=== PATIENT | female | born 1975 | race Caucasian/White ===

== ENCOUNTER 2020-09-25 08:54 | Inpatient (IN) | payer SELFPAY ==
[~2020-09-25] VITALS: Ht 162.6 cm; Wt 73.2 kg
--- NOTE | 2020-09-25 10:10 | PHYS DOC ---
Past Medical History Past Medical History: Other Additional Past Medical Histor: "seizure spells when in pain" Past Surgical History: No Surgical History Smoking Status: Never Smoker Alcohol Use: None General Adult EDM: Chief Complaint: ABDOMINAL PAIN HPI: HPI: 44-year-old female who denies any significant past medical history presents to the ED with complaints of right upper and right lower abdominal pain that has been persistent since patient visited [facility] emergency department yesterday. Patient reports pharmacy was closed and she was unable to refill her medications. When asked if she has primary care physician, takes prescribed medications she states, " I only see doctors when I think I am going to ." Is unable to tolerate anything by mouth-reports multiple episodes of nausea and vomiting. Nontobacco smoker. No history of alcohol or drug use. EMR was reviewed from yesterday's encounter at [facility]. Ultrasound results showed dilated gallbladder but no other secondary evidence of acute cholecystitis, recommended HIDA scan. CT abdomen pelvis with IV contrast showed dilated gallbladder, diffuse hepatic steatosis, normal appendix, no renal or ureteral colliculi, no perinephric inflammation or hydronephrosis and normal abdominal aorta. She had a normal chest x-ray. She had a white count of 15.4, creatinine of 1.1, drug screen negative, no ketonuria, small blood on UA. Patient hypertensive in the 1 50-1 70 systolic range, 80-90 diastolic range. Bradycardic in the 50s. Afebrile at 98.2. Review of Systems: Review of Systems: Constitutional: Denies fever or chills. [] Eyes: Denies change in visual acuity. [] HENT: Denies nasal congestion or sore throat. [] Respiratory: Denies cough or shortness of breath. [] Cardiovascular: Denies chest pain or edema. [] GI: Denies melena, hematochezia, hematemesis, or diarrhea. [] : Denies dysuria or hematuria Musculoskeletal: Denies back pain or joint pain. [] Integument: Denies rash or diaphoresis Neurologic: Denies headache, focal weakness or sensory changes. [] Endocrine: Denies polyuria or polydipsia. [] Lymphatic: Denies swollen glands. [] Psychiatric: Denies depression or anxiety. [] Heart Score: Risk Factors: Risk Factors: DM, Current or recent (<one month) smoker, HTN, HLP, family history of CAD, obesity. Risk Scores: Score 0 - 3: 2.5% MACE over next 6 weeks - Discharge Home Score 4 - 6: 20.3% MACE over next 6 weeks - Admit for Clinical Observation Score 7 - 10: 72.7% MACE over next 6 weeks - Early Invasive Strategies Allergies: Allergies: Allergies Coded Allergies Type Severity Reaction Last Updated Verified No Known Drug Allergies 09/25/20 No Physical Exam: PE: Constitutional: Unkept appearance, afebrile, has visible "spasms" of right sided abdominal pain that come and go HENT: Normocephalic, atraumatic, dry mucous membranes Eyes: EOMI, conjunctiva normal, no discharge. Neck: Normal range of motion, supple, Cardiovascular: S1/2 present, regular rhythm Lungs & Thorax: Speaking in full sentences, bilateral equal chest rise, no tachypnea or increased work of breathing Abdomen: soft, tender in ruq/epigastric region/right lower quadrant/left upper quadrant, no left lower quadrant pain, voluntary guarding present Skin: Warm, dry, no erythema, no rash. [] Back: No tenderness, no CVA tenderness. [] Extremities: No tenderness, no cyanosis, no lower extremity edema Neurologic: Alert and oriented X 3, normal motor function, normal sensory function, no focal deficits noted. [] Psychologic: Affect normal, judgement normal, mood normal. [] Current Patient Data: Vital Signs: Vital Signs Date Time Temp Pulse Resp B/P (MAP) Pulse Ox O2 Delivery O2 Flow Rate FiO2 09/25/20 09:51 76 20 112/71 (85) 98 Room Air 09/25/20 09:15 98.2 98.2 EKG: EKG: Sinus rhythm 84 bpm, no axis deviation, QTC 445, T wave inversion lead III, no ST elevations or ST depressions Radiology/Procedures: Radiology/Procedures: [] IMAGING REPORT Signed PATIENT: JOSÉ ANTONIO LEE ACCOUNT: [id number] : 1975 LOCATION: ER AGE: 44 SEX: F EXAM STATUS: REG ER ORD. PHYSICIAN: ELIZABETH MOSELEY DO REASON: ruq pain PROCEDURE: ABDOMEN LTD Abdominal ultrasound 09/25/2020. Reason for exam: Right upper quadrant pain. FINDINGS: The liver is homogeneous in echotexture, and no intra or extrahepatic ductal dilatation is seen. Gallbladder was distended at the time of the exam, measuring up to about 11 cm. Gallbladder wall appears thickened at about 8 mm there may be a trace of adjacent fluid. No shadowing gallstones are seen. The right kidney and visualized portions of the pancreas and abdominal aorta appear normal. The midline was partly obscured by gas. IMPRESSION: Distended gallbladder with wall thickening. This could indicate cholecystitis, although no gallstones are seen. Electronically signed by: Mike Doe Jr., MD (09/25/2020 10:56 AM) [facility] DICTATED and SIGNED BY: MIKE DOE Jr, MD DATE: 09/25/20 [id number] IMAGING REPORT Signed PATIENT: JOSÉ ANTONIO LEE ACCOUNT: [id number] : 1975 LOCATION: ER AGE: 44 SEX: F EXAM STATUS: REG ER ORD. PHYSICIAN: ELIZABETH MOSELEY DO REASON: diffuse abd pain PROCEDURE: PORTABLE CHEST 1V XR CHEST 1V INDICATION: diffuse abd pain COMPARISON STUDY: None. FINDINGS: Lungs: Normal lung volume. No pulmonary mass or consolidation. The tracheobronchial tree and hilar structures are normal. Pleura: No pleural effusion or pneumothorax. Heart and Mediastinum: The cardiomediastinal silhouette is normal. The great vessels of the thorax are normal. Bones and Soft Tissues: The bones and soft tissues are within normal limits. IMPRESSION: No acute cardiopulmonary process. Electronically signed by: Angy Vidal MD (09/25/2020 10:26 AM) [id number] DICTATED and SIGNED BY: ANGY VIDAL MD DATE: 09/25/20 [id number] Course & Med Decision Making: Course & Med Decision Making Pertinent Labs and Imaging studies reviewed. (See chart for details) Concern for acute cholecystitis -patient appears in significant pain. Was started on antibiotics, n.p.o. Discussed with surgery, Dr. Valdez. Stat covid pending. Will admit to medicine for further medical management. Patient stable at time of admission and agrees with this plan. I have spoken with the patient and/or caregivers. I have explained the patient's condition, diagnosis and treatment plan based on the information available to me at this time. I have answered the patient's and/or caregivers questions and answered any concerns. The patient and/or caregivers have as good an understanding of the patient's diagnosis, condition and treatment plan as can be expected at this point. The patient has been stabilized within the capability of the emergency department. The patient will be transported for further care and management or will be moved to an observation or inpatient ser vice. I have communicated with the staff or medical practitioner taking over this patient's care. Dragon Disclaimer: Dragon Disclaimer: This electronic medical record was generated, in whole or in part, using a voice recognition dictation system. Departure Departure Impression: Primary Impression: Acute cholecystitis Disposition: 09 ADMITTED INPT THIS HOSP Admitting Physician: OLIVIER (Dr. Wilkes) Condition: STABLE Referrals: KYLAH XIONG APRN (PCP) ELIZABETH MOSELEY DO Sep 25, 2020 10:10
[2020-09-25] MEDS ORDERED: HYDROmorphone 2 MG/ML VIAL IVP ONE (10:15)
[2020-09-25] MEDS ORDERED: KETOROLAC 15 MG/ML VIAL. IVP ONE (10:15)
[2020-09-25] MEDS ORDERED: IV NORMAL SALINE 1000ML BAG 1,000 ML IV ONE (10:15)
[2020-09-25 10:24] LABS: BASO # 0.1 x10^3/uL (0.0-0.2); BASO % 0 % (0-3); EOS % 0 % (0-3); HEMATOCRIT 39.8 % (36.0-47.0); HEMOGLOBIN 13.1 g/dL (12.0-15.5); LYMPH # 1.7 x10^3/uL (1.0-4.8); LYMPH % 11 % (24-48); MEAN CORPUSCULAR HEMOGLOBIN 29 pg (25-35); MEAN CORPUSCULAR HGB CONC 33 g/dL (31-37); MEAN CORPUSCULAR VOLUME 89 fL (79-100); MONO # 1.2 x10^3/uL (0.0-1.1); MONO % 8 % (0-9); NEUT # 12.9 x10^3/uL (1.8-7.7); NEUT % 82 % (31-73); PLATELET COUNT 291 x10^3/uL (140-400); RED BLOOD COUNT 4.47 x10^6/uL (3.50-5.40); WHITE BLOOD COUNT 15.9 x10^3/uL (4.0-11.0)
--- NOTE | 2020-09-25 10:29 | RAD ---
XR CHEST 1V INDICATION: diffuse abd pain COMPARISON STUDY: None. FINDINGS: Lungs: Normal lung volume. No pulmonary mass or consolidation. The tracheobronchial tree and hilar st ructures are normal. Pleura: No pleural effusion or pneumothorax. Heart and Mediastinum: The cardiomediastinal silhouette is normal. The great vessels of the thorax ar e normal. Bones and Soft Tissues: The bones and soft tissues are within normal limits. IMPRESSION: No acute cardiopulmonary process. Electronically signed by: Yemi Vidal MD (09/25/2020 10:26 AM) [id number]
[2020-09-25 10:34] LABS: CALCIUM 8.7 mg/dL (8.5-10.1); CREATININE 1.3 mg/dL (0.6-1.0); GFR 44.3; POTASSIUM 3.9 mmol/L (3.5-5.1)
[2020-09-25 10:40] LABS: ALBUMIN 3.7 g/dL (3.4-5.0); DIRECT BILIRUBIN 0.3 mg/dL (0.0-0.2); MAGNESIUM 1.7 mg/dL (1.8-2.4); TOTAL BILIRUBIN 0.9 mg/dL (0.2-1.0); TOTAL PROTEIN 7.5 g/dL (6.4-8.2)
--- NOTE | 2020-09-25 10:58 | RAD ---
Abdominal ultrasound 09/25/2020. Reason for exam: Right upper quadrant pain. FINDINGS: The liver is homogeneous in echotexture, and no intra or extrahepatic ductal dilatation is seen. Gallbladder was distended at the time of the exam, measuring up to about 11 cm. Gallbladder wall appe ars thickened at about 8 mm there may be a trace of adjacent fluid. No shadowing gallstones are seen. The right kidney and visualized portions of the pancreas and abdominal aorta appear normal. The midli ne was partly obscured by gas. IMPRESSION: Distended gallbladder with wall thickening. This could indicate cholecystitis, although n o gallstones are seen. Electronically signed by: Garo Doe Jr., MD (09/25/2020 10:56 AM) [facility]
[2020-09-25 12:01] LABS: % EOS 1 % (0-5); % LYMPHS 11 % (24-48); % MONOS 8 % (0-10); % SEGS 80 % (35-66); PLT ESTIMATE ADEQUATE (ADEQUATE)
[2020-09-25 12:02] LABS: OVALOCYTES OCC; POLYCHROMASIA SLIGHT
[2020-09-25 12:38] LABS: BILIRUBIN,URINE NEGATIVE (NEG); CLARITY,URINE CLEAR; COLOR,URINE AMBER; NITRITE,URINE NEGATIVE (NEG); PH,URINE 5.5 (<5.0-8.0); PROTEIN,URINE NEGATIVE (NEG-TRACE)
[2020-09-25 12:46] LABS: BARBITURATES NEG (NEG); BENZODIAZEPINES NEG (NEG); CANNABINOIDS NEG (NEG); COCAINE NEG (NEG); METHADONE NEG (NEG); OPIATES POS (NEG); PHENCYCLIDINE NEG (NEG)
[2020-09-25 12:50] LABS: AMPHETAMINE/METHAMPHETAMINE NEG (NEG)
[2020-09-25 12:55] LABS: BACTERIA,URINE 0 /HPF (0-FEW); RBC,URINE 0 /HPF (0-2); WBC,URINE 0 /HPF (0-4)
--- NOTE | 2020-09-25 12:55 | EKG ---
[facility] [address] [place] [address] Test Date: 2020-09-25 Test Time: 10:28:06 Pat Name: JOSÉ ANTONIO LEE Department: Room: Gender: F Cruise Director: : 1975 Requested By: ELIZABETH MOSELEY Order Number: [id number] Reading MD: Measurements Intervals [place] Rate: 84 P: 44 AL: 134 QRS: 21 QRSD: 84 T: 20 QT: 374 QTc: 445 Interpretive Statements SINUS RHYTHM NORMAL ECG RI6.02 No previous ECG available for comparison
[2020-09-25] MEDS ORDERED: cefTRIAXone IV Push 1 GM VIAL. IVP ONE (13:15)
[2020-09-25] MEDS ORDERED: PIP/TAZO PER PHARMACY MC PRN (13:45)
[2020-09-25] MEDS: ONDANSETRON PF 4 MG/2 ML VIAL. IV PRN (14:09)
[2020-09-25] MEDS: MORPHINE SULFATE 4 MG/ML VIAL. IV PRN ×2 (14:10→20:05)
[2020-09-25] MEDS: IV NORMAL SALINE 1000ML BAG 1,000 ML IV SCH (14:10)
--- NOTE | 2020-09-25 14:10 | HP ---
ADMIT DATE: 09/25/2020 CHIEF COMPLAINT: Abdominal pain. HISTORY OF PRESENT ILLNESS: The patient is a pleasant, relatively healthy middle-aged female who presented with abdominal pain. She rates it at 9/10. She has associated nausea. We did some imaging showing cholecystitis. I discussed the case with the ER physician. We are going to admit the patient and consult General Surgery and GI and give her IV antibiotics. PAST MEDICAL HISTORY: Seizures with pain. ALLERGIES: None. FAMILY HISTORY: Hypertension. SOCIAL HISTORY: She does not drink, smoke or take drugs. MEDICATIONS: Reviewed, please refer to the MRAD. REVIEW OF SYSTEMS: GENERAL: No history of weight change, weakness or fevers. SKIN: No bruising, hair changes or rashes. EYES: No blurred, double or loss of vision. NOSE AND THROAT: No history of nosebleeds, hoarseness or sore throat. HEART: No history of palpitations, chest pain or shortness of breath on exertion. LUNGS: Denies cough, hemoptysis, wheezing or shortness of breath. GASTROINTESTINAL: She complains of abdominal pain. GENITOURINARY: No history of frequency, urgency, hesitancy or nocturia. NEUROLOGIC: Denies history of numbness, tingling, tremor or weakness. PSYCHIATRIC: No history of panic, anxiety or depression. ENDOCRINE: No history of heat or cold intolerance, polyuria or polydipsia. EXTREMITIES: Denies muscle weakness, joint pain, pain on walking or stiffness. PHYSICAL EXAMINATION: VITALS: Within normal limits and are stable. GENERAL: No apparent distress. Alert and oriented. HEENT: Normal cephalic atraumatic, external auditory canals are patent. Eyes: Extraocular muscles are intact, pupils are equally round and reactive to light and accommodation. MUSCULOSKELETAL: Well developed, well nourished, good range of motion. ENDOCRINE: No thyromegaly was palpated. LYMPHATICS: No cervical chain or axillary nodes were noted. HEMATOPOIETIC: No bruising. NECK: Supple, no JVD, no thyromegaly was noted. LUNGS: Clear to auscultation in all lung morin without rhonchi or wheezing. HEART: RRR, S1, S2 present. Peripheral pulses intact, no obvious murmurs were noted. ABDOMEN: She has decreased bowel sounds and extremely tender in the right upper quadrant. EXTREMITIES: Without any cyanosis, clubbing, or edema. Pedal pulses intact, Homans sign is negative. NEUROLOGIC: Normal speech, normal tone. A and O x 3, moves all extremities, no obvious focal deficits. PSYCHIATRIC: Normal affect, normal mood. Stable. SKIN: No ulcerations or rashes, good skin turgor, no jaundice. VASCULAR: Good capillary refill, neurovascular bundle appears to be intact. LABORATORY DATA: White count 16. ASSESSMENT AND PLAN: Cholecystitis. The patient has been admitted. We will consult General Surgery and GI. IV antibiotics, home meds, DVT prophylaxis, IV fluids. Trend labs. DARYL STEPHENSON DO DR: MARY/katarzyna JOB#: [id number] / [id number]
[2020-09-25 16:52] VITALS: BP 108/72
[2020-09-25] MEDS: PIPERACILLIN/TAZOBACTAM 3.375 GM in IV NORMAL SALINE 50ML 50 ML IV SCH (18:00)
[2020-09-25 23:00] VITALS: BP 102/62
[2020-09-26] VITALS (11 sets, daily range): BP systolic 90–156; BP diastolic 55–99
[2020-09-26] MEDS: MORPHINE SULFATE 4 MG/ML VIAL. IV PRN ×3 (00:43→08:01)
[2020-09-26] MEDS: IV NORMAL SALINE 1000ML BAG 1,000 ML IV SCH ×2 (00:44→09:45)
[2020-09-26] MEDS: PIPERACILLIN/TAZOBACTAM 3.375 GM in IV NORMAL SALINE 50ML 50 ML IV SCH ×5 (00:44→23:58)
[2020-09-26] MEDS ORDERED: IOHEXOL 300 MG/ML 100ML VIAL. IV ONE (08:00)
[2020-09-26] MEDS ORDERED: CONTRAST GIVEN. MC PRN (08:00)
--- NOTE | 2020-09-26 08:35 | PDOC ---
[employer] PROGRESS NOTE Date of Service DOS: DATE: 09/26/20 TIME: 08:32 Chief Complaint Chief Complaint Acute cholecystitis Consult General Surgery and GI. IV antibiotics, home meds, DVT prophylaxis, IV fluids. Trend labs. History of Present Illness History of Present Illness The patient is a pleasant, relatively healthy middle-aged female who presented with abdominal pain. She rates it at 9/10. She has associated nausea. We did some imaging showing cholecystitis. I discussed the case with the ER physician. We are going to admit the patient and consult General Surgery and GI and give her IV antibiotics. 09/26/2020 Patient seen and evaluated. Afebrile, tachycardic, breathing room air. Continue with IV antibiotics. Charts, labs, imaging reviewed. Ultrasound right upper quadrant showed distended gallbladder with wall thickening, but no gallstones seen. Plan for OR today. Vitals/I&O Vitals/I&O: Vital Signs Date Time Temp Pulse Resp B/P (MAP) Pulse Ox O2 Delivery O2 Flow Rate FiO2 09/26/20 08:01 Room Air 09/26/20 07:53 98.1 100 20 103/64 (77) 87 98.1 I & O 09/25/20 09/25/20 09/26/20 15:00 23:00 07:00 Intake Total 1100 ml 100 ml Output Total 2 ml Balance 1100 ml 98 ml Physical Exam General: Alert Heart: Other Lungs: Clear (Tachycardic) Abdomen: Normal bowel sounds, Other (RUQ tenderness) Extremities: No clubbing, No cyanosis Skin: No rashes, No breakdown Labs Labs: Laboratory Tests Test 09/25/20 09:30 09/25/20 12:30 09/25/20 14:30 White Blood Count 15.9 x10^3/uL (4.0-11.0) Red Blood Count 4.47 x10^6/uL (3.50-5.40) Hemoglobin 13.1 g/dL (12.0-15.5) Hematocrit 39.8 % (36.0-47.0) Mean Corpuscular Volume 89 fL (79-100) Mean Corpuscular Hemoglobin 29 pg (25-35) Mean Corpuscular Hemoglobin Concent 33 g/dL (31-37) Red Cell Distribution Width 14.0 % (11.5-14.5) Platelet Count 291 x10^3/uL (140-400) Neutrophils (%) (Auto) 82 % (31-73) Lymphocytes (%) (Auto) 11 % (24-48) Monocytes (%) (Auto) 8 % (0-9) Eosinophils (%) (Auto) 0 % (0-3) Basophils (%) (Auto) 0 % (0-3) Neutrophils # (Auto) 12.9 x10^3/uL (1.8-7.7) Lymphocytes # (Auto) 1.7 x10^3/uL (1.0-4.8) Monocytes # (Auto) 1.2 x10^3/uL (0.0-1.1) Eosinophils # (Auto) 0.0 x10^3/uL (0.0-0.7) Basophils # (Auto) 0.1 x10^3/uL (0.0-0.2) Segmented Neutrophils % 80 % (35-66) Lymphocytes % 11 % (24-48) Monocytes % 8 % (0-10) Eosinophils % 1 % (0-5) Platelet Estimate Adequate (ADEQUATE) Large Platelets Occ Polychromasia Slight Ovalocytes Occ Sodium Level 134 mmol/L (136-145) Potassium Level 3.9 mmol/L (3.5-5.1) Chloride Level 101 mmol/L (98-107) Carbon Dioxide Level 25 mmol/L (21-32) Anion Gap 8 (6-14) Blood Urea Nitrogen 13 mg/dL (7-20) Creatinine 1.3 mg/dL (0.6-1.0) Estimated GFR (Cockcroft-Gault) 44.3 Glucose Level 106 mg/dL (70-99) Lactic Acid Level 1.1 mmol/L (0.4-2.0) Calcium Level 8.7 mg/dL (8.5-10.1) Magnesium Level 1.7 mg/dL (1.8-2.4) Total Bilirubin 0.9 mg/dL (0.2-1.0) Direct Bilirubin 0.3 mg/dL (0.0-0.2) Aspartate Amino Transf (AST/SGOT) 32 U/L (15-37) Alanine Aminotransferase (ALT/SGPT) 54 U/L (14-59) Alkaline Phosphatase 89 U/L (46-116) Creatine Kinase 96 U/L (26-192) Troponin I Quantitative < 0.017 ng/mL (0.000-0.055) DF-Mij-S-Type Natriuretic Peptide 385 pg/mL (0-124) Total Protein 7.5 g/dL (6.4-8.2) Albumin 3.7 g/dL (3.4-5.0) Lipase 118 U/L (73-393) Urine Collection Type Unknown Urine Color Yuli Urine Clarity Clear Urine pH 5.5 (<5.0-8.0) Urine Specific [place] 1.020 (1.000-1.030) Urine Protein Negative mg/dL (NEG-TRACE) Urine Glucose (UA) Negative mg/dL (NEG) Urine Ketones (Stick) Negative mg/dL (NEG) Urine Blood Small (NEG) Urine Nitrite Negative (NEG) Urine Bilirubin Negative (NEG) Urine Urobilinogen Dipstick 1.0 mg/dL (0.2 mg/dL) Urine Leukocyte Esterase Negative (NEG) Urine RBC 0 /HPF (0-2) Urine WBC 0 /HPF (0-4) Urine Squamous Epithelial Cells Many /LPF Urine Bacteria 0 /HPF (0-FEW) Urine Opiates Screen Pos (NEG) Urine Methadone Screen Neg (NEG) Urine Barbiturates Neg (NEG) Urine Phencyclidine Screen Neg (NEG) Urine Amphetamine/Methamphetamine Neg (NEG) Urine Benzodiazepines Screen Neg (NEG) Urine Cocaine Screen Neg (NEG) Urine Cannabinoids Screen Neg (NEG) Urine Ethyl Alcohol Neg (NEG) SARS-CoV-2 Antigen (Rapid) Negative (NEGATIVE) Assessment and Plan Assessmemt and Plan Problems Medical Problems: (1) Acute cholecystitis Status: Acute Comment Review of Relevant I have reviewed the following items nicolette (where applicable) has been applied. Medications: Current Medications Medications (Trade) Dose Ordered Sig/Ela Route PRN Reason Start Time Stop Time Status Last Admin Dose Admin Hydromorphone HCl (Dilaudid) 0.5 mg 1X ONCE IVP 09/25/20 10:15 09/25/20 10:16 DC 09/25/20 10:37 Sodium Chloride 1,000 ml @ 1,000 mls/hr 1X ONCE IV 09/25/20 10:15 09/25/20 11:14 DC 09/25/20 10:35 Ketorolac Tromethamine (Toradol 15mg Vial) 15 mg 1X ONCE IVP 09/25/20 10:15 09/25/20 10:16 DC 09/25/20 10:38 Ceftriaxone Sodium (Rocephin) 1 gm 1X ONCE IVP 09/25/20 13:15 09/25/20 13:16 DC 09/25/20 14:08 Metronidazole 100 ml @ 100 mls/hr 1X ONCE IV 09/25/20 13:15 09/25/20 14:14 DC 09/25/20 14:08 Ondansetron HCl (Zofran) 4 mg PRN Q8HRS PRN IV NAUSEA/VOMITING 09/25/20 13:45 09/26/20 13:44 09/25/20 14:09 Morphine Sulfate (Morphine Sulfate) 4 mg PRN Q2HR PRN IV PAIN 09/25/20 13:45 09/26/20 13:44 09/26/20 08:01 Sodium Chloride 1,000 ml @ 100 mls/hr Q10H IV 09/25/20 13:45 09/26/20 13:44 09/26/20 00:44 Piperacillin Sod/ Tazobactam Sod 3.375 gm/Sodium Chloride 50 ml @ 100 mls/hr Q6HRS IV 09/25/20 18:00 09/26/20 05:51 Iohexol (Omnipaque 300 Mg/ml) 60 ml 1X ONCE IV 09/26/20 08:00 09/26/20 08:01 DC 09/26/20 08:24 Justifications for Admission Other Justification GEOVANNI JOHNSON MD Sep 26, 2020 08:35
--- NOTE | 2020-09-26 08:36 | PDOC2 ---
GI CONSULT Date of Service: DATE: 09/26/20 TIME: 08:36 Reason For Consult: cholecystitis HPI: HPI: 44 y/o female w/ 2 days of RUQ pain - started in shoulder blades. "Hurts to breathe," feels better if she doesn't move. Faraz e nausea. Might have had pain similar to this in the past once before - went away quickly. She is quite uncomfortable during interview this morning, keeps eyes closed. Has occasional heartburn, says she takes Tums every night before bed. No dysphagia, vomiting, diarrhea, constipation, hematochezia, melena, or weight loss. No previous EGD or colonoscopy. No GB, liver, pancreas, or PUD history. No NSAIDs. Labs w/ normal Hgb, LFTs, and lipase. US questions cholecystitis w/ distended GB w/ wall thickening. CT pending. PMH: PMH: arthritis ear surgery as a child FH: Family History: No pertinent hx (denies GB disease and GI cancers) Social History: Smoke: No ALCOHOL: none Drugs: None ROS: GEN: Denies fevers, chills, sweats HEENT: Denies blurred vision, sore throat CV: Denies chest pain RESP: Denies shortness of air, cough GI: Per HPI : Denies hematuria, dysuria ENDO: Denies weight changes NEURO: Denies confusion, dizziness MSK: +joint paint SKIN: Denies jaundice, pruritus Vitals: Vitals: Vital Signs Date Time Temp Pulse Resp B/P (MAP) Pulse Ox O2 Delivery O2 Flow Rate FiO2 09/26/20 08:01 Room Air 09/26/20 07:53 98.1 100 20 103/64 (77) 87 98.1 Labs: Labs: Laboratory Tests Test 09/25/20 09:30 09/25/20 12:30 09/25/20 14:30 White Blood Count 15.9 x10^3/uL (4.0-11.0) Red Blood Count 4.47 x10^6/uL (3.50-5.40) Hemoglobin 13.1 g/dL (12.0-15.5) Hematocrit 39.8 % (36.0-47.0) Mean Corpuscular Volume 89 fL (79-100) Mean Corpuscular Hemoglobin 29 pg (25-35) Mean Corpuscular Hemoglobin Concent 33 g/dL (31-37) Red Cell Distribution Width 14.0 % (11.5-14.5) Platelet Count 291 x10^3/uL (140-400) Neutrophils (%) (Auto) 82 % (31-73) Lymphocytes (%) (Auto) 11 % (24-48) Monocytes (%) (Auto) 8 % (0-9) Eosinophils (%) (Auto) 0 % (0-3) Basophils (%) (Auto) 0 % (0-3) Neutrophils # (Auto) 12.9 x10^3/uL (1.8-7.7) Lymphocytes # (Auto) 1.7 x10^3/uL (1.0-4.8) Monocytes # (Auto) 1.2 x10^3/uL (0.0-1.1) Eosinophils # (Auto) 0.0 x10^3/uL (0.0-0.7) Basophils # (Auto) 0.1 x10^3/uL (0.0-0.2) Segmented Neutrophils % 80 % (35-66) Lymphocytes % 11 % (24-48) Monocytes % 8 % (0-10) Eosinophils % 1 % (0-5) Platelet Estimate Adequate (ADEQUATE) Large Platelets Occ Polychromasia Slight Ovalocytes Occ Sodium Level 134 mmol/L (136-145) Potassium Level 3.9 mmol/L (3.5-5.1) Chloride Level 101 mmol/L (98-107) Carbon Dioxide Level 25 mmol/L (21-32) Anion Gap 8 (6-14) Blood Urea Nitrogen 13 mg/dL (7-20) Creatinine 1.3 mg/dL (0.6-1.0) Estimated GFR (Cockcroft-Gault) 44.3 Glucose Level 106 mg/dL (70-99) Lactic Acid Level 1.1 mmol/L (0.4-2.0) Calcium Level 8.7 mg/dL (8.5-10.1) Magnesium Level 1.7 mg/dL (1.8-2.4) Total Bilirubin 0.9 mg/dL (0.2-1.0) Direct Bilirubin 0.3 mg/dL (0.0-0.2) Aspartate Amino Transf (AST/SGOT) 32 U/L (15-37) Alanine Aminotransferase (ALT/SGPT) 54 U/L (14-59) Alkaline Phosphatase 89 U/L (46-116) Creatine Kinase 96 U/L (26-192) Troponin I Quantitative < 0.017 ng/mL (0.000-0.055) SI-Pnz-I-Type Natriuretic Peptide 385 pg/mL (0-124) Total Protein 7.5 g/dL (6.4-8.2) Albumin 3.7 g/dL (3.4-5.0) Lipase 118 U/L (73-393) Urine Collection Type Unknown Urine Color Yuli Urine Clarity Clear Urine pH 5.5 (<5.0-8.0) Urine Specific Bivalve 1.020 (1.000-1.030) Urine Protein Negative mg/dL (NEG-TRACE) Urine Glucose (UA) Negative mg/dL (NEG) Urine Ketones (Stick) Negative mg/dL (NEG) Urine Blood Small (NEG) Urine Nitrite Negative (NEG) Urine Bilirubin Negative (NEG) Urine Urobilinogen Dipstick 1.0 mg/dL (0.2 mg/dL) Urine Leukocyte Esterase Negative (NEG) Urine RBC 0 /HPF (0-2) Urine WBC 0 /HPF (0-4) Urine Squamous Epithelial Cells Many /LPF Urine Bacteria 0 /HPF (0-FEW) Urine Opiates Screen Pos (NEG) Urine Methadone Screen Neg (NEG) Urine Barbiturates Neg (NEG) Urine Phencyclidine Screen Neg (NEG) Urine Amphetamine/Methamphetamine Neg (NEG) Urine Benzodiazepines Screen Neg (NEG) Urine Cocaine Screen Neg (NEG) Urine Cannabinoids Screen Neg (NEG) Urine Ethyl Alcohol Neg (NEG) SARS-CoV-2 Antigen (Rapid) Negative (NEGATIVE) Allergies: Coded Allergies: No Known Drug Allergies (Unverified , 09/25/20) Medications: Current Medications Medications (Trade) Dose Ordered Sig/Ela Route PRN Reason Start Time Stop Time Status Last Admin Dose Admin Hydromorphone HCl (Dilaudid) 0.5 mg 1X ONCE IVP 09/25/20 10:15 09/25/20 10:16 DC 09/25/20 10:37 Sodium Chloride 1,000 ml @ 1,000 mls/hr 1X ONCE IV 09/25/20 10:15 09/25/20 11:14 DC 09/25/20 10:35 Ketorolac Tromethamine (Toradol 15mg Vial) 15 mg 1X ONCE IVP 09/25/20 10:15 09/25/20 10:16 DC 09/25/20 10:38 Ceftriaxone Sodium (Rocephin) 1 gm 1X ONCE IVP 09/25/20 13:15 09/25/20 13:16 DC 09/25/20 14:08 Metronidazole 100 ml @ 100 mls/hr 1X ONCE IV 09/25/20 13:15 09/25/20 14:14 DC 09/25/20 14:08 Ondansetron HCl (Zofran) 4 mg PRN Q8HRS PRN IV NAUSEA/VOMITING 09/25/20 13:45 09/26/20 13:44 09/25/20 14:09 Morphine Sulfate (Morphine Sulfate) 4 mg PRN Q2HR PRN IV PAIN 09/25/20 13:45 09/26/20 13:44 09/26/20 08:01 Sodium Chloride 1,000 ml @ 100 mls/hr Q10H IV 09/25/20 13:45 09/26/20 13:44 09/26/20 00:44 Piperacillin Sod/ Tazobactam Sod 3.375 gm/Sodium Chloride 50 ml @ 100 mls/hr Q6HRS IV 09/25/20 18:00 09/26/20 05:51 Iohexol (Omnipaque 300 Mg/ml) 60 ml 1X ONCE IV 09/26/20 08:00 09/26/20 08:01 DC 09/26/20 08:24 Imaging: Imaging: CXR 09/25 IMPRESSION: No acute cardiopulmonary process. Abd US 09/25 IMPRESSION: Distended gallbladder with wall thickening. This could indicate cholecystitis, although no gallstones are seen. CT A/P 09/26 pending PE: GEN: quite uncomfortable HEENT: Atraumatic, PERRL LUNGS: CTAB HEART: borderline tachycardic ABD: quiet, soft, RUQ/epigastric/periumbilical tenderness to placement of stethoscope EXTREMITY: No edema SKIN: No rashes, no jaundice NEURO/PSYCH: A & O 3 A/P: A/P: RUQ pain, nausea Leukocytosis GB distension and wall thickening GERD CRC screen - average risk Rapid COVID negative 09/25 -- Await CT. Note plans for cholecystectomy w/ cholangiogram later today. Add acid-medical staff services coordinator for what seems like h/o GERD. THAD ORTIZ Sep 26, 2020 08:36
--- NOTE | 2020-09-26 08:39 | RAD ---
PQRS Compliance Statement: One or more of the following individualized dose reduction techniques were utilized for this examinat ion: 1. Automated exposure control 2. Adjustment of the mA and/or kV according to patient size 3. Use of iterative reconstruction technique CT abdomen/pelvis with contrast 09/26/2020 7:57 AM INDICATION: Right-sided abdominal pain COMPARISON: Ultrasound abdomen 09/17/2020 TECHNIQUE: Multiple axial CT images of the abdomen and pelvis were obtained after the intravenous adm inistration of 60 mL Omnipaque 300. Coronal and sagittal reformats are provided. FINDINGS: Bibasilar consolidative changes are identified, left greater than right which may reflect multifocal infiltrates. Heart size within normal limits. Hypoattenuation the hepatic parenchyma suggestive hepat ic steatosis. There is gallbladder wall thickening with mural edema and pericholecystic inflammatory changes suspicious for acute cholecystitis. No calcified gallstones are visualized. Spleen, adrenal g lands and pancreas are normal in appearance. There is mild prominence of the common bile duct which m easures up to 6 mm. No significant intrahepatic biliary ductal dilation. Abdominal aorta is normal in caliber. No pathologically enlarged lymph nodes identified in the abdomen and pelvis. There is small volume pelvic free fluid. Punctate calcification identified within the dependent portion the pelvis measuring 3 mm. The kidneys enhance symmetrically. There is no suspicious renal mass. There is no hyd ronephrosis. There are no suspected calculi within the kidneys, ureters or urinary bladder. Small and large bowel are normal in caliber. There is no evidence for bowel obstruction. There are no pericolo kat inflammatory changes. Appendix is not dilated measuring up to 5 mm. High attenuation within the a ppendix could represent appendicoliths. There is a 9 mm cystic intramural fibroid within the uterine fundus. Urinary bladder is within normal limits given degree of distention. No suspicious osseous nor mality is identified. Degenerative disc disease identified at L5-S1. IMPRESSION: 1. Bibasilar consolidative changes suspicious for multifocal infiltrates. 2. Inflammatory changes involving the gallbladder suspicious for acute cholecystitis, possibly acalcu isaías cholecystitis. Borderline size of the common bile duct measuring 6 mm. 3. Noninflamed appendix with high attenuation centrally suggestive of appendicoliths. 4. Small to moderate volume free fluid within the dependent pelvis. 5. 9 mm intramural fibroid within the uterine fundus. 6. Mild hepatic steatosis. Electronically signed by: Tati Cordova MD (09/26/2020 8:37 AM) [id number]
[2020-09-26] MEDS ORDERED: PROCHLORPERAZINE 10 MG/2 ML VIAL. IVP PRN (08:45)
[2020-09-26] MEDS ORDERED: fentaNYL PF VIAL 100 MCG/2 ML VIAL IVP PRN (08:45)
[2020-09-26] MEDS ORDERED: PANTOPRAZOLE IV PUSH 40 MG VIAL. IVP SCH (08:45)
[2020-09-26] MEDS ORDERED: MORPHINE SULFATE 2 MG/ML VIAL. IVP PRN (08:45)
[2020-09-26] MEDS ORDERED: IV RINGERS,LACTATED 1000ML 1,000 ML IV SCH (08:45)
[2020-09-26] MEDS ORDERED: HYDROmorphone 2 MG/ML VIAL IVP PRN (08:45)
--- NOTE | 2020-09-26 09:01 | PDOC2 ---
CONSULT Date of Consult Date of Consult DATE: 09/26/20 TIME: 08:58 History of Present Illness Reason for Visit: The patient is a 44 year old female who presented to the ER with acute onset of abdominal pain. The pain is sharp and severe and located in the right abdomen with radiation to the back. She denies nausea or vomiting. Past Medical History Past Medical History denies Past Surgical History Past Surgical History ear surgery Social History No ALCOHOL: rare Drugs: None Current Problem List Problem List Problems Medical Problems: (1) Acute cholecystitis Status: Acute Current Medications Current Medications Current Medications Hydromorphone HCl (Dilaudid) 0.5 mg 1X ONCE IVP Last administered on 09/25/20at 10:37; Start 09/25/20 at 10:15; Stop 09/25/20 at 10:16; Status DC Sodium Chloride 1,000 ml @ 1,000 mls/hr 1X ONCE IV Last administered on 09/25/20at 10:35; Start 09/25/20 at 10:15; Stop 09/25/20 at 11:14; Status DC Ketorolac Tromethamine (Toradol 15mg Vial) 15 mg 1X ONCE IVP Last administered on 09/25/20at 10:38; Start 09/25/20 at 10:15; Stop 09/25/20 at 10:16; Status DC Ceftriaxone Sodium (Rocephin) 1 gm 1X ONCE IVP Last administered on 09/25/20at 14:08; Start 09/25/20 at 13:15; Stop 09/25/20 at 13:16; Status DC Metronidazole 100 ml @ 100 mls/hr 1X ONCE IV Last administered on 09/25/20at 14:08; Start 09/25/20 at 13:15; Stop 09/25/20 at 14:14; Status DC Ondansetron HCl (Zofran) 4 mg PRN Q8HRS PRN IV NAUSEA/VOMITING Last administered on 09/25/20at 14:09; Start 09/25/20 at 13:45; Stop 09/26/20 at 13:44 Morphine Sulfate (Morphine Sulfate) 4 mg PRN Q2HR PRN IV PAIN Last administered on 09/26/20at 08:01; Start 09/25/20 at 13:45; Stop 09/26/20 at 13:44 Sodium Chloride 1,000 ml @ 100 mls/hr Q10H IV Last administered on 09/26/20at 00:44; Start 09/25/20 at 13:45; Stop 09/26/20 at 13:44 Piperacillin Sod/ Tazobactam Sod (Zosyn Per Pharmacy) 1 each PRN DAILY PRN MC SEE COMMENTS; Start 09/25/20 at 13:45 Piperacillin Sod/ Tazobactam Sod 3.375 gm/Sodium Chloride 50 ml @ 100 mls/hr Q6HRS IV Last administered on 09/26/20at 05:51; Start 09/25/20 at 18:00 Iohexol (Omnipaque 300 Mg/ml) 60 ml 1X ONCE IV Last administered on 09/26/20at 08:24; Start 09/26/20 at 08:00; Stop 09/26/20 at 08:01; Status DC Info (CONTRAST GIVEN -- Rx MONITORING) 1 each PRN DAILY PRN MC SEE COMMENTS; Start 09/26/20 at 08:00; Stop 09/28/20 at 07:59 Pantoprazole Sodium (PROTONIX VIAL for IV PUSH) 40 mg DAILYAC IVP ; Start 09/26/20 at 08:45 Fentanyl Citrate (Fentanyl 2ml Vial) 25 mcg PRN Q5MIN PRN IVP MILD PAIN 1-3; Start 09/26/20 at 08:45; Stop 09/27/20 at 08:44 Fentanyl Citrate (Fentanyl 2ml Vial) 50 mcg PRN Q5MIN PRN IVP MODERATE PAIN 4- 6; Start 09/26/20 at 08:45; Stop 09/27/20 at 08:44 Morphine Sulfate (Morphine Sulfate) 1 mg PRN Q10MIN PRN IVP SEVERE PAIN 7-10; Start 09/26/20 at 08:45; Stop 09/27/20 at 08:44 Ringer's Solution 1,000 ml @ 30 mls/hr Q24H IV ; Start 09/26/20 at 08:45; Stop 09/26/20 at 20:44 Hydromorphone HCl (Dilaudid) 0.5 mg PRN Q10MIN PRN IVP SEVERE PAIN 7-10, 2nd CHOICE; Start 09/26/20 at 08:45; Stop 09/27/20 at 08:44 Prochlorperazine Edisylate (Compazine) 5 mg PACU PRN PRN IVP NAUSEA, MRX1; Start 09/26/20 at 08:45; Stop 09/27/20 at 08:44 Allergies Allergies: Coded Allergies: No Known Drug Allergies (Unverified , 09/25/20) ROS General: No: Chills, Night Sweats, Fatigue, Malaise, Appetite, Other PSYCHOLOGICAL ROS: No: Anxiety, Behavioral Disorder, Concentration difficultie, Decreased libido, Depression, Disorientation, Hallucinations, Hostility, Irritablity, Memory difficulties, Mood Swings, Obsessive thoughts, Physical abuse, Sexual abuse, Sleep disturbances, Suicidal ideation, Other Eyes: No Blurry vision, No Decreased vision, No Double vision, No Dry eyes, No Excessive tearing, No Eye Pain, No Itchy Eyes, No Loss of vision, No Photophobia, No Scotomata, No Uses contacts, No Uses glasses, No Other HEENT: No: Heacaches, Visual Changes, Hearing change, Nasal congestion, Nasal discharge, Oral lesions, Sinus pain, Sore Throat, Epistaxis, Sneezing, Snoring, Tinnitus, Vertigo, Vocal changes, Other ENDOCRINE: No: Breast Changes, Galactorrhea, Hair Pattern Changes, Hot Flashes, Malaise/lethargy, Mood Swings, Palpitations, Polydipsia/polyuria, Skin Changes, Temperature Intolerance, Unexpected Weight Changes, Other Breast: No New/Changing Breast Lumps, No Nipple changes, No Nipple discharge, No Other Respiratory: No: Cough, Hemoptysis, Orthopnea, Pleuritic Pain, Shortness of breath, SOB with excertion, Sputum Changes, Stridor, Tachypnea, Wheezing, Other Cardiovascular: No Chest Pain, No Palpitations, No Orthopnea, No Paroxysmal Noc. Dyspnea, No Edema, No Lt Headedness, No Other Gastrointestinal: Yes Abdominal Pain Genitourinary: No Dysuria, No Frequency, No Incontinence, No Hematuria, No Retention, No Discharge, No Urgency, No Pain, No Flank Pain, No Other, No , No , No , No , No , No , No Musculoskeletal: No Gait Disturbance, No Joint Pain, No Joint Stiffness, No Joint Swelling, No Muscle Pain, No Muscular Weakness, No Pain In:, No Swelling In:, No Other Neurological: No Behavorial Changes, No Bowel/Bladder ControlChng, No Confusion, No Dizziness, No Gait Disturbance, No Headaches, No Impaired Coord/balance, No Memory Loss, No Numbness/Tingling, No Seizures, No Speech Problems, No Tremors, No Visual Changes, No Weakness, No Other Skin: No Dry Skin, No Eczema, No Hair Changes, No Lumps, No Mole Changes, No Mottling, No Nail Changes, No Pruritus, No Rash, No Skin Lesion Changes, No Other, No Acne Physical Exam General: Alert, moderate distress HEENT: Atraumatic Lungs: Clear to auscultation Heart: Regular rate Abdomen: Soft, Other (very tender with palpation in right abdomen) Extremities: No clubbing, No cyanosis Neuro: Normal speech Psych/Mental Status: Mental status NL Vitals VITALS Vital Signs Date Time Temp Pulse Resp B/P (MAP) Pulse Ox O2 Delivery O2 Flow Rate FiO2 09/26/20 08:01 Room Air 09/26/20 07:53 98.1 100 20 103/64 (77) 87 98.1 Labs Labs Laboratory Tests Test 09/25/20 09:30 09/25/20 12:30 09/25/20 14:30 White Blood Count 15.9 x10^3/uL (4.0-11.0) Red Blood Count 4.47 x10^6/uL (3.50-5.40) Hemoglobin 13.1 g/dL (12.0-15.5) Hematocrit 39.8 % (36.0-47.0) Mean Corpuscular Volume 89 fL (79-100) Mean Corpuscular Hemoglobin 29 pg (25-35) Mean Corpuscular Hemoglobin Concent 33 g/dL (31-37) Red Cell Distribution Width 14.0 % (11.5-14.5) Platelet Count 291 x10^3/uL (140-400) Neutrophils (%) (Auto) 82 % (31-73) Lymphocytes (%) (Auto) 11 % (24-48) Monocytes (%) (Auto) 8 % (0-9) Eosinophils (%) (Auto) 0 % (0-3) Basophils (%) (Auto) 0 % (0-3) Neutrophils # (Auto) 12.9 x10^3/uL (1.8-7.7) Lymphocytes # (Auto) 1.7 x10^3/uL (1.0-4.8) Monocytes # (Auto) 1.2 x10^3/uL (0.0-1.1) Eosinophils # (Auto) 0.0 x10^3/uL (0.0-0.7) Basophils # (Auto) 0.1 x10^3/uL (0.0-0.2) Segmented Neutrophils % 80 % (35-66) Lymphocytes % 11 % (24-48) Monocytes % 8 % (0-10) Eosinophils % 1 % (0-5) Platelet Estimate Adequate (ADEQUATE) Large Platelets Occ Polychromasia Slight Ovalocytes Occ Sodium Level 134 mmol/L (136-145) Potassium Level 3.9 mmol/L (3.5-5.1) Chloride Level 101 mmol/L (98-107) Carbon Dioxide Level 25 mmol/L (21-32) Anion Gap 8 (6-14) Blood Urea Nitrogen 13 mg/dL (7-20) Creatinine 1.3 mg/dL (0.6-1.0) Estimated GFR (Cockcroft-Gault) 44.3 Glucose Level 106 mg/dL (70-99) Lactic Acid Level 1.1 mmol/L (0.4-2.0) Calcium Level 8.7 mg/dL (8.5-10.1) Magnesium Level 1.7 mg/dL (1.8-2.4) Total Bilirubin 0.9 mg/dL (0.2-1.0) Direct Bilirubin 0.3 mg/dL (0.0-0.2) Aspartate Amino Transf (AST/SGOT) 32 U/L (15-37) Alanine Aminotransferase (ALT/SGPT) 54 U/L (14-59) Alkaline Phosphatase 89 U/L (46-116) Creatine Kinase 96 U/L (26-192) Troponin I Quantitative < 0.017 ng/mL (0.000-0.055) NT-[id number]-[id number]-Type Natriuretic Peptide 385 pg/mL (0-124) Total Protein 7.5 g/dL (6.4-8.2) Albumin 3.7 g/dL (3.4-5.0) Lipase 118 U/L (73-393) Urine Collection Type Unknown Urine Color Yuli Urine Clarity Clear Urine pH 5.5 (<5.0-8.0) Urine Specific [place] 1.020 (1.000-1.030) Urine Protein Negative mg/dL (NEG-TRACE) Urine Glucose (UA) Negative mg/dL (NEG) Urine Ketones (Stick) Negative mg/dL (NEG) Urine Blood Small (NEG) Urine Nitrite Negative (NEG) Urine Bilirubin Negative (NEG) Urine Urobilinogen Dipstick 1.0 mg/dL (0.2 mg/dL) Urine Leukocyte Esterase Negative (NEG) Urine RBC 0 /HPF (0-2) Urine WBC 0 /HPF (0-4) Urine Squamous Epithelial Cells Many /LPF Urine Bacteria 0 /HPF (0-FEW) Urine Opiates Screen Pos (NEG) Urine Methadone Screen Neg (NEG) Urine Barbiturates Neg (NEG) Urine Phencyclidine Screen Neg (NEG) Urine Amphetamine/Methamphetamine Neg (NEG) Urine Benzodiazepines Screen Neg (NEG) Urine Cocaine Screen Neg (NEG) Urine Cannabinoids Screen Neg (NEG) Urine Ethyl Alcohol Neg (NEG) SARS-CoV-2 Antigen (Rapid) Negative (NEGATIVE) Laboratory Tests Test 09/25/20 09:30 09/25/20 12:30 09/25/20 14:30 White Blood Count 15.9 x10^3/uL (4.0-11.0) Red Blood Count 4.47 x10^6/uL (3.50-5.40) Hemoglobin 13.1 g/dL (12.0-15.5) Hematocrit 39.8 % (36.0-47.0) Mean Corpuscular Volume 89 fL (79-100) Mean Corpuscular Hemoglobin 29 pg (25-35) Mean Corpuscular Hemoglobin Concent 33 g/dL (31-37) Red Cell Distribution Width 14.0 % (11.5-14.5) Platelet Count 291 x10^3/uL (140-400) Neutrophils (%) (Auto) 82 % (31-73) Lymphocytes (%) (Auto) 11 % (24-48) Monocytes (%) (Auto) 8 % (0-9) Eosinophils (%) (Auto) 0 % (0-3) Basophils (%) (Auto) 0 % (0-3) Neutrophils # (Auto) 12.9 x10^3/uL (1.8-7.7) Lymphocytes # (Auto) 1.7 x10^3/uL (1.0-4.8) Monocytes # (Auto) 1.2 x10^3/uL (0.0-1.1) Eosinophils # (Auto) 0.0 x10^3/uL (0.0-0.7) Basophils # (Auto) 0.1 x10^3/uL (0.0-0.2) Segmented Neutrophils % 80 % (35-66) Lymphocytes % 11 % (24-48) Monocytes % 8 % (0-10) Eosinophils % 1 % (0-5) Platelet Estimate Adequate (ADEQUATE) Large Platelets Occ Polychromasia Slight Ovalocytes Occ Sodium Level 134 mmol/L (136-145) Potassium Level 3.9 mmol/L (3.5-5.1) Chloride Level 101 mmol/L (98-107) Carbon Dioxide Level 25 mmol/L (21-32) Anion Gap 8 (6-14) Blood Urea Nitrogen 13 mg/dL (7-20) Creatinine 1.3 mg/dL (0.6-1.0) Estimated GFR (Cockcroft-Gault) 44.3 Glucose Level 106 mg/dL (70-99) Lactic Acid Level 1.1 mmol/L (0.4-2.0) Calcium Level 8.7 mg/dL (8.5-10.1) Magnesium Level 1.7 mg/dL (1.8-2.4) Total Bilirubin 0.9 mg/dL (0.2-1.0) Direct Bilirubin 0.3 mg/dL (0.0-0.2) Aspartate Amino Transf (AST/SGOT) 32 U/L (15-37) Alanine Aminotransferase (ALT/SGPT) 54 U/L (14-59) Alkaline Phosphatase 89 U/L (46-116) Creatine Kinase 96 U/L (26-192) Troponin I Quantitative < 0.017 ng/mL (0.000-0.055) [id number]-Nvr-G-Type Natriuretic Peptide 385 pg/mL (0-124) Total Protein 7.5 g/dL (6.4-8.2) Albumin 3.7 g/dL (3.4-5.0) Lipase 118 U/L (73-393) Urine Collection Type Unknown Urine Color Yuli Urine Clarity Clear Urine pH 5.5 (<5.0-8.0) Urine Specific [place] 1.020 (1.000-1.030) Urine Protein Negative mg/dL (NEG-TRACE) Urine Glucose (UA) Negative mg/dL (NEG) Urine Ketones (Stick) Negative mg/dL (NEG) Urine Blood Small (NEG) Urine Nitrite Negative (NEG) Urine Bilirubin Negative (NEG) Urine Urobilinogen Dipstick 1.0 mg/dL (0.2 mg/dL) Urine Leukocyte Esterase Negative (NEG) Urine RBC 0 /HPF (0-2) Urine WBC 0 /HPF (0-4) Urine Squamous Epithelial Cells Many /LPF Urine Bacteria 0 /HPF (0-FEW) Urine Opiates Screen Pos (NEG) Urine Methadone Screen Neg (NEG) Urine Barbiturates Neg (NEG) Urine Phencyclidine Screen Neg (NEG) Urine Amphetamine/Methamphetamine Neg (NEG) Urine Benzodiazepines Screen Neg (NEG) Urine Cocaine Screen Neg (NEG) Urine Cannabinoids Screen Neg (NEG) Urine Ethyl Alcohol Neg (NEG) SARS-CoV-2 Antigen (Rapid) Negative (NEGATIVE) Assessment/Plan Assessment/Plan 44 year old female with R abdominal pain, evaluation suggestive of acute c holecystitis. Plan for lap karol; the details and risks were discussed with the patient. She understands and would like to proceed. MONICA LACEY MD Sep 26, 2020 09:01
[2020-09-26] MEDS ORDERED: fentaNYL PF VIAL 100 MCG/2 ML VIAL ONE ×3 (09:58→11:56)
[2020-09-26] MEDS ORDERED: LIDOCAINE 2% PF 5 ML VIAL. ONE ×2 (09:59→11:56)
[2020-09-26] MEDS ORDERED: PROPOFOL 10 MG/ML (20ML) VIAL. IV ONE ×2 (09:59→11:56)
[2020-09-26 10:14] LABS: U PREG PATIENT NEGATIVE (NEG)
[2020-09-26] MEDS ORDERED: BUPIVACAINE MPF 0.5% 30 ML VIAL. ONE (10:21)
[2020-09-26] MEDS ORDERED: SURGICEL HEMOSTAT 4X8 EACH. ONE (10:21)
[2020-09-26] MEDS ORDERED: SUCCINYLCHOLINE 200 MG/10 ML VIAL. ONE (10:21)
[2020-09-26] MEDS ORDERED: IOHEXOL 300 MG/ML 50 ML VIAL. ONE (10:21)
[2020-09-26] MEDS ORDERED: ROCURONIUM 50 MG/5 ML VIAL. ONE (10:22)
[2020-09-26] MEDS ORDERED: ONDANSETRON PF 4 MG/2 ML VIAL. ONE ×2 (10:25→10:57)
[2020-09-26] MEDS ORDERED: FAMOTIDINE 20 MG/2 ML VIAL ONE (10:38)
[2020-09-26] MEDS: ONDANSETRON PF 4 MG/2 ML VIAL. IV PRN (10:50)
[2020-09-26] MEDS: fentaNYL PF VIAL 100 MCG/2 ML VIAL IVP PRN ×4 (10:50→13:44)
[2020-09-26] MEDS ORDERED: DEXAMETHASONE SOD PHOS 4 MG/ML VIAL ONE (10:57)
[2020-09-26] MEDS ORDERED: DESFLURANE 31 TO 60 MINUTES IH ONE (10:57)
[2020-09-26] MEDS ORDERED: FAMOTIDINE 20 MG/2 ML VIAL IVP ONE (11:00)
[2020-09-26] MEDS ORDERED: NEOSTIGMINE METHYLSULFATE 5 MG/5 ML SYRINGE. ONE (11:20)
[2020-09-26] MEDS ORDERED: GLYCOPYRROLATE 1 MG/5 ML VIAL. ONE (11:20)
--- NOTE | 2020-09-26 12:34 | PDOC4 ---
Operative Note Operative Note Operative Note: Preoperative Diagnosis: Acute cholecystitis Postoperative Diagnosis: Severe acute gangrenous cholecystitis Procedure: Laparoscopic cholecystectomy with intraoperative cholangiogram Surgeons: Celso Legal Biller: Mary MAGANA Anesthesia: Gen. Estimated Blood Loss: 50 mL Specimen: Gallbladder to pathology Drains: 19 Fr KULWANT Complications: None Indications: The patient is a 44-year-old female who was admitted with abdominal pain. Her work-up is consistent with acute cholecystitis. Surgical treatment was offered by means of a laparoscopic cholecystectomy. The risks of surgery were discussed which include bleeding, infection, bile duct injury, bile leak, pain, the potential for additional surgeries or procedures. The patient understands and would like to proceed. Description: The patient was taken to the operating room and laid supine on the operating table. General anesthesia was performed. The abdomen was prepped with ChloraPrep and draped in a standard surgical fashion. A small infraumbilical incision was made with a scalpel. The Veress needle was then inserted and a pneumoperitoneum was then created. A 5 mm trocar was then inserted and the laparoscope was introduced. In the upper midabdomen a 12 mm trocar was inserted and in the right upper quadrant two 5 mm trocar were inse rted. Initial inspection showed a marked inflammatory response with omentum adherent to the abdominal wall and obscuring the gallbladder. There was a small amount of free dark fluid suggesting gangrenous change of the gallbladder. The omentum was peeled away showing a severely inflamed gallbladder with gangrenous change. The gallbladder was retracted cephalad. We began mobilizing inferiorly which was difficult due to the degree of inflammatory change. Gradually we were able to identify what appeared to be the cystic duct. One clip was placed on the duct near the gallbladder junction. An opening was made in the duct and a cholangiocatheter placed within and secured with a clip. Using contrast dye and fluoroscopy an intraoperative cholangiogram was performed that appeared unremarkable. The clip and catheter were then withdrawn. Three clips were placed on the cystic duct and it was divided. The cystic artery was then identified, dissected free, doubly clipped and divided as well. A posterior branch was also clipped and divided. The gallbladder was then mobilized away from the liver with cautery. A Surgicel pack was placed on the gallbladder fossa to assist with hemostasis. A 19 English KULWANT drain was also left near the gallbladder fossa with an exit site in the right lateral port incision. This was secured to the skin with 2-0 silk. The gallbladder was then placed in an endoscopic bag and extracted at the superior trocar site. The fascia there was closed with an 0 PDS sutures. All blood and irrigation fluid was suctioned and hemostasis was good. The remaining ports were removed and the pneumoperitoneum was relieved. The skin incisions were closed using 4-0 Monocryl suture. Steri- Strips and dressings were then applied. The patient tolerated the procedure well and was sent to the recovery room in stable condition. At the end of the case all counts were correct. MONICA LACEY MD Sep 26, 2020 12:34
[2020-09-26] MEDS ORDERED: oxyCODONE/APAP 5/325 1 TAB TABLET PO PRN (12:45)
--- NOTE | 2020-09-26 12:54 | RAD ---
Intraoperative cholangiogram INDICATION: Cholecystectomy. COMPARISON: 09/27/[address] with IV contrast FINDINGS: Total of 0.2 minutes of fluoroscopy time was utilized in acquiring 4 images for procedural documentat ion during intraoperative cholangiography. They show injection of the cystic duct stump with opacification of the intrahepatic bile ducts are no rmal in caliber, and of the common bile duct which in part due to overlap with the cystic duct remnan t, shows somewhat variable dense filling. There is apparent linear filling defect in the common bile duct of uncertain significance, potentially representing a common duct stent although this does not c learly cross the ampulla [place]. Air bubbles and choledocholithiasis are differential considerations. There is satisfactory drainage of contrast material into the duodenum. IMPRESSION: Intraoperative cholangiogram showing some filling defects in the common bile duct, equivocal for gas bubbles, nonobstructing gallstones, or foreign body. Correlate clinically. Electronically signed by: Francisco Javier Poe MD (09/26/2020 12:52 PM) [id number]
[2020-09-26] MEDS ORDERED: MORPHINE SULFATE 2 MG/ML VIAL. ONE (14:22)
[2020-09-26] MEDS ORDERED: MORPHINE SULFATE 4 MG/ML VIAL. IV PRN (16:45)
[2020-09-26] MEDS: oxyCODONE/APAP 5/325 1 TAB TABLET PO PRN (18:26)
[2020-09-26] MEDS ORDERED: CYCLOBENZAPRINE 10 MG TABLET. PO ONE (19:00)
[2020-09-27] MEDS ORDERED: ACETAMINOPHEN 325 MG TABLET. PO PRN
[2020-09-27] MEDS: oxyCODONE/APAP 5/325 1 TAB TABLET PO PRN ×3 (01:24→22:00)
[2020-09-27 03:00] VITALS: BP 103/55
[2020-09-27] MEDS: PIPERACILLIN/TAZOBACTAM 3.375 GM in IV NORMAL SALINE 50ML 50 ML IV SCH ×3 (06:47→17:26)
[2020-09-27] MEDS: PANTOPRAZOLE 40 MG TABLET.DR. PO SCH (06:47)
[2020-09-27 07:00] VITALS: BP 94/58
[2020-09-27 07:50] LABS: HEMATOCRIT 32.1 % (36.0-47.0); HEMOGLOBIN 10.5 g/dL (12.0-15.5); RED BLOOD COUNT 3.59 x10^6/uL (3.50-5.40); RED CELL DISTRIBUTION WIDTH 14.4 % (11.5-14.5); WHITE BLOOD COUNT 13.5 x10^3/uL (4.0-11.0)
[2020-09-27 07:56] LABS: ALBUMIN 2.4 g/dL (3.4-5.0); ALBUMIN/GLOBULIN RATIO 0.6 (1.0-1.7); CALCIUM 8.3 mg/dL (8.5-10.1); CREATININE 1.2 mg/dL (0.6-1.0); GFR 48.6; POTASSIUM 3.7 mmol/L (3.5-5.1); TOTAL BILIRUBIN 1.3 mg/dL (0.2-1.0); TOTAL PROTEIN 6.2 g/dL (6.4-8.2)
--- NOTE | 2020-09-27 09:52 | PDOC ---
Date of Service: DATE: 09/27/20 TIME: 09:46 Subjective: Subjective: Has post-op soreness on right side but pain is much better overall. Tolerating diet, not passing gas yet but daughter is bringing her coffee. Objective: Vital Signs: Vital Signs Date Time Temp Pulse Resp B/P (MAP) Pulse Ox O2 Delivery O2 Flow Rate FiO2 09/27/20 08:00 Room Air 09/27/20 07:00 98.2 70 16 94/58 (70) 93 98.2 09/26/20 20:00 2.0 Labs: Laboratory Tests Test 09/27/20 06:15 White Blood Count 13.5 x10^3/uL Red Blood Count 3.59 x10^6/uL Hemoglobin 10.5 g/dL Hematocrit 32.1 % Mean Corpuscular Volume 89 fL Mean Corpuscular Hemoglobin 29 pg Mean Corpuscular Hemoglobin Concent 33 g/dL Red Cell Distribution Width 14.4 % Platelet Count 245 x10^3/uL Sodium Level 137 mmol/L Potassium Level 3.7 mmol/L Chloride Level 102 mmol/L Carbon Dioxide Level 26 mmol/L Anion Gap 9 Blood Urea Nitrogen 14 mg/dL Creatinine 1.2 mg/dL Estimated GFR (Cockcroft-Gault) 48.6 BUN/Creatinine Ratio 12 Glucose Level 97 mg/dL Calcium Level 8.3 mg/dL Total Bilirubin 1.3 mg/dL Aspartate Amino Transf (AST/SGOT) 38 U/L Alanine Aminotransferase (ALT/SGPT) 73 U/L Alkaline Phosphatase 129 U/L Total Protein 6.2 g/dL Albumin 2.4 g/dL Albumin/Globulin Ratio 0.6 Imaging: IOC 09/26 IMPRESSION: Intraoperative cholangiogram showing some filling defects in the common bile duct, equivocal for gas bubbles, nonobstructing gallstones, or foreign body. Correlate clinically. PE: GEN: NAD - appears much more comfortable today LUNGS: CTAB HEART: RRR ABD: drain RUQ sanguinous, incisional tenderness, quiet NEURO/PSYCH: A & O 3 A/P: S/p cholecystectomy - severe acute gangrenous cholecystitis Abnormal IOC Leukocytosis (better), anemia (post-op), elevated LFTs (new) H/o GERD COVID negative 09/25 -- Monitor LFTs. Diet per surgery. Justicifation of Admission Dx: Justifications for Admission: Justification of Admission Dx: Yes THAD ORTIZ Sep 27, 2020 09:52
--- NOTE | 2020-09-27 10:20 | PDOC ---
[employer] PROGRESS NOTE Date of Service DOS: DATE: 09/27/20 TIME: 10:16 Chief Complaint Chief Complaint Acute cholecystitis Consult General Surgery and GI. IV antibiotics, home meds, DVT prophylaxis, IV fluids. Trend labs. History of Present Illness History of Present Illness The patient is a pleasant, relatively healthy middle-aged female who presented with abdominal pain. She rates it at 9/10. She has associated nausea. We did some imaging showing cholecystitis. I discussed the case with the ER physician. We are going to admit the patient and consult General Surgery and GI and give her IV antibiotics. 09/26/2020 Patient seen and evaluated. Afebrile, tachycardic, breathing room air. Continue with IV antibiotics. Charts, labs, imaging reviewed. Ultrasound right upper quadrant showed distended gallbladder with wall thickening, but no gallstones seen. Plan for OR today. 09/27/2020 POD #1, s/p laparoscopic cholecystectomy. Tolerating GI soft diet. Denies flatus or BM. Vitals/I&O Vitals/I&O: Vital Signs Date Time Temp Pulse Resp B/P (MAP) Pulse Ox O2 Delivery O2 Flow Rate FiO2 09/27/20 08:00 Room Air 09/27/20 07:00 98.2 70 16 94/58 (70) 93 98.2 09/26/20 20:00 2.0 I & O 09/26/20 09/26/20 09/27/20 14:59 22:59 06:59 Intake Total 1300 ml 300 ml 180 ml Output Total 110 ml 80 ml 300 ml Balance 1190 ml 220 ml -120 ml Physical Exam General: Alert, No acute distress Heart: Regular rate Lungs: Clear (Tachycardic) Abdomen: Soft, Other (very tender with palpation in right abdomen) Extremities: No clubbing, No cyanosis Skin: No rashes, No breakdown Labs Labs: Laboratory Tests Test 09/27/20 06:15 White Blood Count 13.5 x10^3/uL (4.0-11.0) Red Blood Count 3.59 x10^6/uL (3.50-5.40) Hemoglobin 10.5 g/dL (12.0-15.5) Hematocrit 32.1 % (36.0-47.0) Mean Corpuscular Volume 89 fL (79-100) Mean Corpuscular Hemoglobin 29 pg (25-35) Mean Corpuscular Hemoglobin Concent 33 g/dL (31-37) Red Cell Distribution Width 14.4 % (11.5-14.5) Platelet Count 245 x10^3/uL (140-400) Sodium Level 137 mmol/L (136-145) Potassium Level 3.7 mmol/L (3.5-5.1) Chloride Level 102 mmol/L (98-107) Carbon Dioxide Level 26 mmol/L (21-32) Anion Gap 9 (6-14) Blood Urea Nitrogen 14 mg/dL (7-20) Creatinine 1.2 mg/dL (0.6-1.0) Estimated GFR (Cockcroft-Gault) 48.6 BUN/Creatinine Ratio 12 (6-20) Glucose Level 97 mg/dL (70-99) Calcium Level 8.3 mg/dL (8.5-10.1) Total Bilirubin 1.3 mg/dL (0.2-1.0) Aspartate Amino Transf (AST/SGOT) 38 U/L (15-37) Alanine Aminotransferase (ALT/SGPT) 73 U/L (14-59) Alkaline Phosphatase 129 U/L (46-116) Total Protein 6.2 g/dL (6.4-8.2) Albumin 2.4 g/dL (3.4-5.0) Albumin/Globulin Ratio 0.6 (1.0-1.7) Assessment and Plan Assessmemt and Plan Problems Medical Problems: (1) Acute cholecystitis Status: Acute Comment Review of Relevant I have reviewed the following items nicolette (where applicable) has been applied. Medications: Current Medications Medications (Trade) Dose Ordered Sig/Ela Route PRN Reason Start Time Stop Time Status Last Admin Dose Admin Iohexol (Omnipaque 300 Mg/ml) 50 ml STK-MED ONCE .ROUTE 09/26/20 10:21 09/26/20 10:21 DC 09/26/20 11:28 Cellulose (Surgicel Hemostat 4x8) 1 each STK-MED ONCE .ROUTE 09/26/20 10:21 09/26/20 10:22 DC 09/26/20 11:49 Bupivacaine HCl (Sensorcaine Mpf 0.5%) 30 ml STK-MED ONCE .ROUTE 09/26/20 10:21 09/26/20 10:22 DC 09/26/20 11:27 Famotidine (Pepcid Vial) 20 mg 1X ONCE IVP 09/26/20 11:00 09/26/20 11:01 DC 09/26/20 10:53 Oxycodone/ Acetaminophen (Percocet 5/325) 1 tab PRN Q4HRS PRN PO PAIN MILD TO MOD 09/26/20 12:45 09/27/20 01:24 Morphine Sulfate (Morphine Sulfate) 4 mg PRN Q2HR PRN IV PAIN 09/26/20 16:45 09/26/20 16:52 Cyclobenzaprine HCl (Flexeril) 10 mg 1X ONCE PO 09/26/20 19:00 09/26/20 19:01 DC 09/26/20 18:27 Acetaminophen (Tylenol) 650 mg PRN Q6HRS PRN PO MILD PAIN / TEMP > 100.3'F 09/27/20 00:00 09/27/20 00:08 Pantoprazole Sodium (Protonix) 40 mg DAILYAC PO 09/27/20 07:30 09/27/20 06:47 Justifications for Admission Other Justification GEOVANNI JOHNSON MD Sep 27, 2020 10:20
--- NOTE | 2020-09-27 10:25 | PDOC ---
PROGRESS NOTES Date of Service DATE: 09/27/20 TIME: 10:24 Subjective Subjective looks better, sore Objective Objective Vital Signs Date Time Temp Pulse Resp B/P (MAP) Pulse Ox O2 Delivery O2 Flow Rate FiO2 09/27/20 08:00 Room Air 09/27/20 07:00 98.2 70 16 94/58 (70) 93 98.2 09/26/20 20:00 2.0 Intake and Output 09/27/20 07:00 Intake Total 1780 ml Output Total 490 ml Balance 1290 ml Intake Oral 230 ml IV Total 1550 ml Output Urine Total 380 ml Drainage Total 60 ml Estimated Blood Loss 50 ml # Voids 3 Physical Exam Abdomen: Soft Assessment Assessment Problems Medical Problems: (1) Acute cholecystitis Status: Acute Plan Plan of Care Improving, given severity of cholecystitis I would recommend an additional day of IV abx, drainage. Possible discharge tomorrow Comment Review of Relevant I have reviewed the following items nicolette (where applicable) has been applied. Labs Laboratory Tests Test 09/25/20 12:30 09/25/20 14:30 09/27/20 06:15 Urine Collection Type Unknown Urine Color Yuli Urine Clarity Clear Urine pH 5.5 (<5.0-8.0) Urine Specific [place] 1.020 (1.000-1.030) Urine Protein Negative mg/dL (NEG-TRACE) Urine Glucose (UA) Negative mg/dL (NEG) Urine Ketones (Stick) Negative mg/dL (NEG) Urine Blood Small (NEG) Urine Nitrite Negative (NEG) Urine Bilirubin Negative (NEG) Urine Urobilinogen Dipstick 1.0 mg/dL (0.2 mg/dL) Urine Leukocyte Esterase Negative (NEG) Urine RBC 0 /HPF (0-2) Urine WBC 0 /HPF (0-4) Urine Squamous Epithelial Cells Many /LPF Urine Bacteria 0 /HPF (0-FEW) Urine Test Negative (NEG) Urine Opiates Screen Pos (NEG) Urine Methadone Screen Neg (NEG) Urine Barbiturates Neg (NEG) Urine Phencyclidine Screen Neg (NEG) Urine Amphetamine/Methamphetamine Neg (NEG) Urine Benzodiazepines Screen Neg (NEG) Urine Cocaine Screen Neg (NEG) Urine Cannabinoids Screen Neg (NEG) Urine Ethyl Alcohol Neg (NEG) SARS-CoV-2 Antigen (Rapid) Negative (NEGATIVE) White Blood Count 13.5 x10^3/uL (4.0-11.0) Red Blood Count 3.59 x10^6/uL (3.50-5.40) Hemoglobin 10.5 g/dL (12.0-15.5) Hematocrit 32.1 % (36.0-47.0) Mean Corpuscular Volume 89 fL (79-100) Mean Corpuscular Hemoglobin 29 pg (25-35) Mean Corpuscular Hemoglobin Concent 33 g/dL (31-37) Red Cell Distribution Width 14.4 % (11.5-14.5) Platelet Count 245 x10^3/uL (140-400) Sodium Level 137 mmol/L (136-145) Potassium Level 3.7 mmol/L (3.5-5.1) Chloride Level 102 mmol/L (98-107) Carbon Dioxide Level 26 mmol/L (21-32) Anion Gap 9 (6-14) Blood Urea Nitrogen 14 mg/dL (7-20) Creatinine 1.2 mg/dL (0.6-1.0) Estimated GFR (Cockcroft-Gault) 48.6 BUN/Creatinine Ratio 12 (6-20) Glucose Level 97 mg/dL (70-99) Calcium Level 8.3 mg/dL (8.5-10.1) Total Bilirubin 1.3 mg/dL (0.2-1.0) Aspartate Amino Transf (AST/SGOT) 38 U/L (15-37) Alanine Aminotransferase (ALT/SGPT) 73 U/L (14-59) Alkaline Phosphatase 129 U/L (46-116) Total Protein 6.2 g/dL (6.4-8.2) Albumin 2.4 g/dL (3.4-5.0) Albumin/Globulin Ratio 0.6 (1.0-1.7) Laboratory Tests Test 09/27/20 06:15 White Blood Count 13.5 x10^3/uL (4.0-11.0) Red Blood Count 3.59 x10^6/uL (3.50-5.40) Hemoglobin 10.5 g/dL (12.0-15.5) Hematocrit 32.1 % (36.0-47.0) Mean Corpuscular Volume 89 fL (79-100) Mean Corpuscular Hemoglobin 29 pg (25-35) Mean Corpuscular Hemoglobin Concent 33 g/dL (31-37) Red Cell Distribution Width 14.4 % (11.5-14.5) Platelet Count 245 x10^3/uL (140-400) Sodium Level 137 mmol/L (136-145) Potassium Level 3.7 mmol/L (3.5-5.1) Chloride Level 102 mmol/L (98-107) Carbon Dioxide Level 26 mmol/L (21-32) Anion Gap 9 (6-14) Blood Urea Nitrogen 14 mg/dL (7-20) Creatinine 1.2 mg/dL (0.6-1.0) Estimated GFR (Cockcroft-Gault) 48.6 BUN/Creatinine Ratio 12 (6-20) Glucose Level 97 mg/dL (70-99) Calcium Level 8.3 mg/dL (8.5-10.1) Total Bilirubin 1.3 mg/dL (0.2-1.0) Aspartate Amino Transf (AST/SGOT) 38 U/L (15-37) Alanine Aminotransferase (ALT/SGPT) 73 U/L (14-59) Alkaline Phosphatase 129 U/L (46-116) Total Protein 6.2 g/dL (6.4-8.2) Albumin 2.4 g/dL (3.4-5.0) Albumin/Globulin Ratio 0.6 (1.0-1.7) Medications Current Medications Hydromorphone HCl (Dilaudid) 0.5 mg 1X ONCE IVP Last administered on 09/25/20at 10:37; Start 09/25/20 at 10:15; Stop 09/25/20 at 10:16; Status DC Sodium Chloride 1,000 ml @ 1,000 mls/hr 1X ONCE IV Last administered on 09/25/20at 10:35; Start 09/25/20 at 10:15; Stop 09/25/20 at 11:14; Status DC Ketorolac Tromethamine (Toradol 15mg Vial) 15 mg 1X ONCE IVP Last administered on 09/25/20at 10:38; Start 09/25/20 at 10:15; Stop 09/25/20 at 10:16; Status DC Ceftriaxone Sodium (Rocephin) 1 gm 1X ONCE IVP Last administered on 09/25/20at 14:08; Start 09/25/20 at 13:15; Stop 09/25/20 at 13:16; Status DC Metronidazole 100 ml @ 100 mls/hr 1X ONCE IV Last administered on 09/25/20at 14:08; Start 09/25/20 at 13:15; Stop 09/25/20 at 14:14; Status DC Ondansetron HCl (Zofran) 4 mg PRN Q8HRS PRN IV NAUSEA/VOMITING Last administered on 09/26/20at 10:50; Start 09/25/20 at 13:45; Stop 09/26/20 at 13:44; Status DC Morphine Sulfate (Morphine Sulfate) 4 mg PRN Q2HR PRN IV PAIN Last administered on 09/26/20at 08:01; Start 09/25/20 at 13:45; Stop 09/26/20 at 13:44; Status DC Sodium Chloride 1,000 ml @ 100 mls/hr Q10H IV Last administered on 09/26/20at 00 :44; Start 09/25/20 at 13:45; Stop 09/26/20 at 13:44; Status DC Piperacillin Sod/ Tazobactam Sod (Zosyn Per Pharmacy) 1 each PRN DAILY PRN MC SEE COMMENTS Last administered on 09/26/20at 12:03; Start 09/25/20 at 13:45 Piperacillin Sod/ Tazobactam Sod 3.375 gm/Sodium Chloride 50 ml @ 100 mls/hr Q6HRS IV Last administered on 09/27/20at 06:47; Start 09/25/20 at 18:00 Iohexol (Omnipaque 300 Mg/ml) 60 ml 1X ONCE IV Last administered on 09/26/20at 08:24; Start 09/26/20 at 08:00; Stop 09/26/20 at 08:01; Status DC Info (CONTRAST GIVEN -- Rx MONITORING) 1 each PRN DAILY PRN MC SEE COMMENTS; Start 09/26/20 at 08:00; Stop 09/28/20 at 07:59 Pantoprazole Sodium (PROTONIX VIAL for IV PUSH) 40 mg DAILYAC IVP ; Start 09/26/20 at 08:45; Stop 09/27/20 at 05:39; Status DC Fentanyl Citrate (Fentanyl 2ml Vial) 25 mcg PRN Q5MIN PRN IVP MILD PAIN 1-3 Last administered on 09/26/20at 13:44; Start 09/26/20 at 08:45; Stop 09/27/20 at 08:44; Status DC Fentanyl Citrate (Fentanyl 2ml Vial) 50 mcg PRN Q5MIN PRN IVP MODERATE PAIN 4- 6; Start 09/26/20 at 08:45; Stop 09/27/20 at 08:44; Status DC Morphine Sulfate (Morphine Sulfate) 1 mg PRN Q10MIN PRN IVP SEVERE PAIN 7-[address] administered on 09/26/20at 14:28; Start 09/26/20 at 08:45; Stop 09/27/20 at 08:44; Status DC Ringer's Solution 1,000 ml @ 30 mls/hr Q24H IV Last administered on 09/26/20at 10:30; Start 09/26/20 at 08:45; Stop 09/26/20 at 20:44; Status DC Hydromorphone HCl (Dilaudid) 0.5 mg PRN Q10MIN PRN IVP SEVERE PAIN 7-10, 2nd CHOICE; Start 09/26/20 at 08:45; Stop 09/27/20 at 08:44; Status DC Prochlorperazine Edisylate (Compazine) 5 mg PACU PRN PRN IVP NAUSEA, MRX1; Start 09/26/20 at 08:45; Stop 09/27/20 at 08:44; Status DC Fentanyl Citrate (Fentanyl 2ml Vial) 100 mcg STK-MED ONCE .ROUTE ; Start 09/26/20 at 09:58; Stop 09/26/20 at 09:59; Status DC Propofol (Diprivan) 200 mg STK-MED ONCE IV ; Start 09/26/20 at 09:59; Stop 09/26/20 at 09:59; Status DC Lidocaine HCl (Lidocaine Pf 2% Vial) 5 ml STK-MED ONCE .ROUTE ; Start 09/26/20 at 09:59; Stop 09/26/20 at 09:59; Status DC Iohexol (Omnipaque 300 Mg/ml) 50 ml STK-MED ONCE .ROUTE Last administered on 09/26/20at 11:28; Start 09/26/20 at 10:21; Stop 09/26/20 at 10:21; Status DC Cellulose (Surgicel Hemostat 4x8) 1 each STK-MED ONCE .ROUTE Last administered on 09/26/20at 11:49; Start 09/26/20 at 10:21; Stop 09/26/20 at 10:22; Status DC Succinylcholine Chloride (Anectine) 200 mg STK-MED ONCE .ROUTE ; Start 09/26/20 at 10:21; Stop 09/26/20 at 10:22; Status DC Bupivacaine HCl (Sensorcaine Mpf 0.5%) 30 ml STK-MED ONCE .ROUTE Last administered on 09/26/20at 11:27; Start 09/26/20 at 10:21; Stop 09/26/20 at 10:22; Status DC Rocuronium [place] (Zemuron) 50 mg STK-MED ONCE .ROUTE ; Start 09/26/20 at 10:22; Stop 09/26/20 at 10:22; Status DC Ondansetron HCl (Zofran) 4 mg STK-MED ONCE .ROUTE ; Start 09/26/20 at 10:25; Stop 09/26/20 at 10:25; Status DC Fentanyl Citrate (Fentanyl 2ml Vial) 100 mcg STK-MED ONCE .ROUTE ; Start 09/26/20 at 10:25; Stop 09/26/20 at 10:25; Status DC Famotidine (Pepcid Vial) 20 mg STK-MED ONCE .ROUTE ; Start 09/26/20 at 10:38; Stop 09/26/20 at 10:38; Status DC Famotidine (Pepcid Vial) 20 mg 1X ONCE IVP Last administered on 09/26/20at 10:53; Start 09/26/20 at 11:00; Stop 09/26/20 at 11:01; Status DC Ondansetron HCl (Zofran) 4 mg STK-MED ONCE .ROUTE ; Start 09/26/20 at 10:57; Stop 09/26/20 at 10:58; Status DC Dexamethasone Sodium Phosphate (Decadron) 4 mg STK-MED ONCE .ROUTE ; Start 09/26/20 at 10:57; Stop 09/26/20 at 10:58; Status DC Desflurane (Suprane) 30 ml STK-MED ONCE IH ; Start 09/26/20 at 10:57; Stop 09/26/20 at 10:58; Status DC Neostigmine Crawford (Neostigmine Methylsulfate) 5 mg STK-MED ONCE .ROUTE ; Start 09/26/20 at 11:20; Stop 09/26/20 at 11:20; Status DC Glycopyrrolate (Robinul) 1 mg STK-MED ONCE .ROUTE ; Start 09/26/20 at 11:20; Stop 09/26/20 at 11:20; Status DC Propofol (Diprivan) 200 mg STK-MED ONCE IV ; Start 09/26/20 at 11:56; Stop 09/26/20 at 11:56; Status DC Lidocaine HCl (Lidocaine Pf 2% Vial) 5 ml STK-MED ONCE .ROUTE ; Start 09/26/20 at 11:56; Stop 09/26/20 at 11:56; Status DC Fentanyl Citrate (Fentanyl 2ml Vial) 100 mcg STK-MED ONCE .ROUTE ; Start 09/26/20 at 11:56; Stop 09/26/20 at 11:57; Status DC Oxycodone/ Acetaminophen (Percocet 5/325) 1 tab PRN Q4HRS PRN PO PAIN MILD TO M OD Last administered on 09/27/20at 01:24; Start 09/26/20 at 12:45 Oxycodone/ Acetaminophen (Percocet 5/325) 2 tab PRN Q4HRS PRN PO PAIN SEVERE; Start 09/26/20 at 12:45 Morphine Sulfate (Morphine Sulfate) 2 mg STK-MED ONCE .ROUTE ; Start 09/26/20 at 14:22; Stop 09/26/20 at 14:22; Status DC Morphine Sulfate (Morphine Sulfate) 4 mg PRN Q2HR PRN IV PAIN Last administered on 09/26/20at 16:52; Start 09/26/20 at 16:45 Cyclobenzaprine HCl (Flexeril) 10 mg 1X ONCE PO Last administered on 09/26/20at 18:27; Start 09/26/20 at 19:00; Stop 09/26/20 at 19:01; Status DC Acetaminophen (Tylenol) 650 mg PRN Q6HRS PRN PO MILD PAIN / TEMP > 100.3'F Last administered on 09/27/20at 00:08; Start 09/27/20 at 00:00 Pantoprazole Sodium (Protonix) 40 mg DAILYAC PO Last administered on 09/27/20at 06:47; Start 09/27/20 at 07:30 Vitals/I & O Vital Sign - Last 24 Hours 09/26/20 09/26/20 09/26/20 09/26/20 10:34 10:50 10:55 11:00 Temp 98.1 98.6 98.1 98.6 Pulse 92 95 Resp 15 15 15 18 B/P (MAP) 103/60 90/55 (67) Pulse Ox 98 98 98 86 O2 Delivery Room Air Room Air Room Air Room Air O2 Flow Rate 2 2.0 2.0 09/26/20 09/26/20 09/26/20 09/26/20 12:44 12:59 13:14 13:17 Temp 98.6 98.6 98.6 98.6 98.6 98.6 Pulse 102 100 100 Resp 19 B/P (MAP) 119/66 113/66 114/72 Pulse Ox 94 97 96 O2 Delivery Simple Mask Simple Mask Nasal Cannula Mask O2 Flow Rate 10 10 4 10 09/26/20 09/26/20 09/26/20 09/26/20 13:28 13:29 13:44 13:44 Temp 98.6 98.6 98.6 98.6 Pulse 101 83 Resp 16 B/P (MAP) 116/70 110/63 Pulse Ox 96 93 95 93 O2 Delivery Nasal Cannula Nasal Cannula Nasal Cannula Nasal Cannula O2 Flow Rate 4.0 4.0 4.0 4.0 09/26/20 09/26/20 09/26/20 09/26/20 13:59 14:14 14:28 14:29 Temp 98.6 98.6 98.6 98.6 98.6 98.6 Pulse 94 88 85 Resp B/P (MAP) 107/62 111/72 119/70 Pulse Ox 93 92 95 97 O2 Delivery Nasal Cannula Nasal Cannula Nasal Cannula Nasal Cannula O2 Flow Rate 4.0 4.0 4.0 4.0 09/26/20 09/26/20 09/26/20 09/26/20 14:44 15:00 15:15 15:30 Temp 98 98.0 98.0 98.0 Pulse 90 84 86 86 Resp B/P (MAP) 115/69 155/64 (94) 121/67 (85) 109/65 (80) Pulse Ox 95 93 O2 Delivery Nasal Cannula Room Air O2 Flow Rate 4.0 09/26/20 09/26/20 09/26/20 09/26/20 15:45 16:15 16:52 17:25 Pulse 86 107 B/P (MAP) 121/72 (88) 117/74 (88) O2 Delivery Room Air Nasal Cannula O2 Flow Rate 4.0 09/26/20 09/26/20 09/26/20 09/26/20 18:00 18:26 19:00 19:26 Pulse 82 86 Resp 18 B/P (MAP) 115/64 (81) 121/69 (86) Pulse Ox 94 O2 Delivery Room Air Nasal Cannula O2 Flow Rate 2.0 09/26/20 09/26/20 09/27/20 09/27/20 20:00 23:00 01:24 02:24 Pulse 80 Resp 20 18 B/P (MAP) 113/70 (84) Pulse Ox 94 94 92 O2 Delivery Nasal Cannula Room Air Nasal Cannula O2 Flow Rate 2.0 09/27/20 09/27/20 09/27/20 03:00 07:00 08:00 Temp 98.3 98.2 98.3 98.2 Pulse 70 70 Resp 16 B/P (MAP) 103/55 (71) 94/58 (70) Pulse Ox 90 93 O2 Delivery Room Air Room Air Intake and Output 09/26/20 09/26/20 09/27/20 15:00 23:00 07:00 Intake Total 1600 ml 180 ml Output Total 110 ml 80 ml 300 ml Balance 1490 ml -80 ml -120 ml Justifications for Admission Other Justification MONICA LACEY MD Sep 27, 2020 10:25
[2020-09-27 11:00] VITALS: BP 112/72
[2020-09-27 15:00] VITALS: BP 117/72
[2020-09-27 19:30] VITALS: BP 90/59
[2020-09-27 22:40] VITALS: BP 103/64
[2020-09-28] MEDS: PIPERACILLIN/TAZOBACTAM 3.375 GM in IV NORMAL SALINE 50ML 50 ML IV SCH ×2 (00:20→05:45)
[2020-09-28 03:08] VITALS: BP 100/52
[2020-09-28] MEDS: PANTOPRAZOLE 40 MG TABLET.DR. PO SCH (05:45)
[2020-09-28 06:19] LABS: ALBUMIN 2.4 g/dL (3.4-5.0); ALBUMIN/GLOBULIN RATIO 0.6 (1.0-1.7); CALCIUM 7.9 mg/dL (8.5-10.1); CREATININE 1.2 mg/dL (0.6-1.0); GFR 48.6; POTASSIUM 3.5 mmol/L (3.5-5.1); TOTAL BILIRUBIN 0.6 mg/dL (0.2-1.0); TOTAL PROTEIN 6.3 g/dL (6.4-8.2)
[2020-09-28 06:23] LABS: HEMATOCRIT 30.2 % (36.0-47.0); RED BLOOD COUNT 3.38 x10^6/uL (3.50-5.40); RED CELL DISTRIBUTION WIDTH 14.1 % (11.5-14.5); WHITE BLOOD COUNT 8.6 x10^3/uL (4.0-11.0)
[2020-09-28 07:00] VITALS: BP 110/69
--- NOTE | 2020-09-28 08:57 | PDOC ---
[employer] PROGRESS NOTE Date of Service DOS: DATE: 09/28/20 TIME: 08:52 Chief Complaint Chief Complaint Acute cholecystitis Consult General Surgery and GI. IV antibiotics, home meds, DVT prophylaxis, IV fluids. Trend labs. History of Present Illness History of Present Illness The patient is a pleasant, relatively healthy middle-aged female who presented with abdominal pain. She rates it at 9/10. She has associated nausea. We did some imaging showing cholecystitis. I discussed the case with the ER physician. We are going to admit the patient and consult General Surgery and GI and give her IV antibiotics. 09/26/2020 Patient seen and evaluated. Afebrile, tachycardic, breathing room air. Continue with IV antibiotics. Charts, labs, imaging reviewed. Ultrasound right upper quadrant showed distended gallbladder with wall thickening, but no gallstones seen. Plan for OR today. 09/27/2020 POD #1, s/p laparoscopic cholecystectomy. Tolerating GI soft diet. Denies flatus or BM. 09/28/2020 POD #2, status post lap cholecystectomy. Tolerating soft diet. Passing flatus, denies BM. 50 cc serosanguineous output in KULWANT drain overnight. Some incisional tenderness. Denies fever. Will discuss with general surgeon about potential discharge. Vitals/I&O Vitals/I&O: Vital Signs Date Time Temp Pulse Resp B/P (MAP) Pulse Ox O2 Delivery O2 Flow Rate FiO2 09/28/20 07:00 98.2 53 18 110/69 (83) 95 Room Air 98.2 I & O 09/27/20 09/27/20 09/28/20 15:00 23:00 07:00 Intake Total 300 ml 100 ml Output Total 240 ml 190 ml 110 ml Balance -240 ml 110 ml -10 ml Physical Exam General: Alert, No acute distress Heart: Regular rate Lungs: Clear (Tachycardic) Abdomen: Soft Extremities: No clubbing, No cyanosis Skin: No rashes, No breakdown Labs Labs: Laboratory Tests Test 09/28/20 05:30 White Blood Count 8.6 x10^3/uL (4.0-11.0) Red Blood Count 3.38 x10^6/uL (3.50-5.40) Hemoglobin 10.0 g/dL (12.0-15.5) Hematocrit 30.2 % (36.0-47.0) Mean Corpuscular Volume 89 fL (79-100) Mean Corpuscular Hemoglobin 30 pg (25-35) Mean Corpuscular Hemoglobin Concent 33 g/dL (31-37) Red Cell Distribution Width 14.1 % (11.5-14.5) Platelet Count 296 x10^3/uL (140-400) Sodium Level 139 mmol/L (136-145) Potassium Level 3.5 mmol/L (3.5-5.1) Chloride Level 102 mmol/L (98-107) Carbon Dioxide Level 29 mmol/L (21-32) Anion Gap 8 (6-14) Blood Urea Nitrogen 15 mg/dL (7-20) Creatinine 1.2 mg/dL (0.6-1.0) Estimated GFR (Cockcroft-Gault) 48.6 BUN/Creatinine Ratio 13 (6-20) Glucose Level 95 mg/dL (70-99) Calcium Level 7.9 mg/dL (8.5-10.1) Total Bilirubin 0.6 mg/dL (0.2-1.0) Aspartate Amino Transf (AST/SGOT) 23 U/L (15-37) Alanine Aminotransferase (ALT/SGPT) 56 U/L (14-59) Alkaline Phosphatase 126 U/L (46-116) Total Protein 6.3 g/dL (6.4-8.2) Albumin 2.4 g/dL (3.4-5.0) Albumin/Globulin Ratio 0.6 (1.0-1.7) Assessment and Plan Assessmemt and Plan Problems Medical Problems: (1) Acute cholecystitis Status: Acute Comment Review of Relevant I have reviewed the following items nicolette (where applicable) has been applied. Justifications for Admission Other Justification GEOVANNI JOHNSON MD Sep 28, 2020 08:57
--- NOTE | 2020-09-28 09:15 | PDOC ---
Date of Service: DATE: 09/28/20 TIME: 09:11 Subjective: Subjective: Not sleeping well, food not as good today, has some pain, drain output ongoing. Says she's trying not to be grumpy but she's usually very active and busy and it's hard for her to slow down. Objective: Vital Signs: Vital Signs Date Time Temp Pulse Resp B/P (MAP) Pulse Ox O2 Delivery O2 Flow Rate FiO2 09/28/20 07:00 98.2 53 18 110/69 (83) 95 Room Air 98.2 Labs: Laboratory Tests Test 09/28/20 05:30 White Blood Count 8.6 x10^3/uL Red Blood Count 3.38 x10^6/uL Hemoglobin 10.0 g/dL Hematocrit 30.2 % Mean Corpuscular Volume 89 fL Mean Corpuscular Hemoglobin 30 pg Mean Corpuscular Hemoglobin Concent 33 g/dL Red Cell Distribution Width 14.1 % Platelet Count 296 x10^3/uL Sodium Level 139 mmol/L Potassium Level 3.5 mmol/L Chloride Level 102 mmol/L Carbon Dioxide Level 29 mmol/L Anion Gap 8 Blood Urea Nitrogen 15 mg/dL Creatinine 1.2 mg/dL Estimated GFR (Cockcroft-Gault) 48.6 BUN/Creatinine Ratio 13 Glucose Level 95 mg/dL Calcium Level 7.9 mg/dL Total Bilirubin 0.6 mg/dL Aspartate Amino Transf (AST/SGOT) 23 U/L Alanine Aminotransferase (ALT/SGPT) 56 U/L Alkaline Phosphatase 126 U/L Total Protein 6.3 g/dL Albumin 2.4 g/dL Albumin/Globulin Ratio 0.6 PE: GEN: NAD LUNGS: CTAB HEART: RRR ABD: soft, incisional/drain tenderness, KULWANT serosang NEURO/PSYCH: A & O 3 A/P: S/p cholecystectomy - severe acute gangrenous cholecystitis Abnormal IOC - ?air bubbles - LFTs improved FABRICIO/ACD - stable H/o GERD COVID negative 09/25 -- LFTs better. Dc per primary/surgery. Would continue PPI. Follow-up for EGD and colonoscopy re: FABRICIO. Justicifation of Admission Dx: Justifications for Admission: Justification of Admission Dx: Yes THAD ORTIZ Sep 28, 2020 09:15
[2020-09-28] MEDS ORDERED: LACTOBACILLUS RHAMNOSUS GG 1 CAPSULE. PO SCH (10:00)
[2020-09-28] MEDS ORDERED: CYCLOBENZAPRINE 10 MG TABLET. PO PRN (10:30)
[2020-09-28] MEDS: oxyCODONE/APAP 5/325 1 TAB TABLET PO PRN ×2 (10:34→14:12)
[2020-09-28 11:00] VITALS: BP 113/72
--- NOTE | 2020-09-28 12:40 | PDOC ---
PROGRESS NOTES Date of Service DATE: 09/28/20 TIME: 12:39 Subjective Subjective improving Objective Objective Vital Signs Date Time Temp Pulse Resp B/P (MAP) Pulse Ox O2 Delivery O2 Flow Rate FiO2 09/28/20 11:00 98.3 62 18 113/72 (86) 96 Room Air 98.3 09/26/20 20:00 2.0 Intake and Output 09/28/20 07:00 Intake Total 400 ml Output Total 540 ml Balance -140 ml Intake Oral 400 ml Output Urine Total 400 ml Drainage Total 140 ml # Voids 2 Physical Exam Abdomen: Soft Assessment Assessment Problems Medical Problems: (1) Acute cholecystitis Status: Acute Plan Plan of Care DC drain, ok to discharge, FU in 2 weeks in office Comment Review of Relevant I have reviewed the following items nicolette (where applicable) has been applied. Labs Laboratory Tests Test 09/27/20 06:15 09/28/20 05:30 White Blood Count 13.5 x10^3/uL (4.0-11.0) 8.6 x10^3/uL (4.0-11.0) Red Blood Count 3.59 x10^6/uL (3.50-5.40) 3.38 x10^6/uL (3.50-5.40) Hemoglobin 10.5 g/dL (12.0-15.5) 10.0 g/dL (12.0-15.5) Hematocrit 32.1 % (36.0-47.0) 30.2 % (36.0-47.0) Mean Corpuscular Volume 89 fL (79-100) 89 fL (79-100) Mean Corpuscular Hemoglobin 29 pg (25-35) 30 pg (25-35) Mean Corpuscular Hemoglobin Concent 33 g/dL (31-37) 33 g/dL (31-37) Red Cell Distribution Width 14.4 % (11.5-14.5) 14.1 % (11.5-14.5) Platelet Count 245 x10^3/uL (140-400) 296 x10^3/uL (140-400) Sodium Level 137 mmol/L (136-145) 139 mmol/L (136-145) Potassium Level 3.7 mmol/L (3.5-5.1) 3.5 mmol/L (3.5-5.1) Chloride Level 102 mmol/L (98-107) 102 mmol/L (98-107) Carbon Dioxide Level 26 mmol/L (21-32) 29 mmol/L (21-32) Anion Gap 9 (6-14) 8 (6-14) Blood Urea Nitrogen 14 mg/dL (7-20) 15 mg/dL (7-20) Creatinine 1.2 mg/dL (0.6-1.0) 1.2 mg/dL (0.6-1.0) Estimated GFR (Cockcroft-Gault) 48.6 48.6 BUN/Creatinine Ratio 12 (6-20) 13 (6-20) Glucose Level 97 mg/dL (70-99) 95 mg/dL (70-99) Calcium Level 8.3 mg/dL (8.5-10.1) 7.9 mg/dL (8.5-10.1) Iron Level 17 ug/dL (50-170) Total Iron Binding Capacity 234 ug/dL (250-450) Iron Saturation 7 % (15-34) Total Bilirubin 1.3 mg/dL (0.2-1.0) 0.6 mg/dL (0.2-1.0) Aspartate Amino Transf (AST/SGOT) 38 U/L (15-37) 23 U/L (15-37) Alanine Aminotransferase (ALT/SGPT) 73 U/L (14-59) 56 U/L (14-59) Alkaline Phosphatase 129 U/L (46-116) 126 U/L (46-116) Total Protein 6.2 g/dL (6.4-8.2) 6.3 g/dL (6.4-8.2) Albumin 2.4 g/dL (3.4-5.0) 2.4 g/dL (3.4-5.0) Albumin/Globulin Ratio 0.6 (1.0-1.7) 0.6 (1.0-1.7) Vitamin B12 Level 693 pg/mL (247-911) Laboratory Tests Test 09/28/20 05:30 White Blood Count 8.6 x10^3/uL (4.0-11.0) Red Blood Count 3.38 x10^6/uL (3.50-5.40) Hemoglobin 10.0 g/dL (12.0-15.5) Hematocrit 30.2 % (36.0-47.0) Mean Corpuscular Volume 89 fL (79-100) Mean Corpuscular Hemoglobin 30 pg (25-35) Mean Corpuscular Hemoglobin Concent 33 g/dL (31-37) Red Cell Distribution Width 14.1 % (11.5-14.5) Platelet Count 296 x10^3/uL (140-400) Sodium Level 139 mmol/L (136-145) Potassium Level 3.5 mmol/L (3.5-5.1) Chloride Level 102 mmol/L (98-107) Carbon Dioxide Level 29 mmol/L (21-32) Anion Gap 8 (6-14) Blood Urea Nitrogen 15 mg/dL (7-20) Creatinine 1.2 mg/dL (0.6-1.0) Estimated GFR (Cockcroft-Gault) 48.6 BUN/Creatinine Ratio 13 (6-20) Glucose Level 95 mg/dL (70-99) Calcium Level 7.9 mg/dL (8.5-10.1) Total Bilirubin 0.6 mg/dL (0.2-1.0) Aspartate Amino Transf (AST/SGOT) 23 U/L (15-37) Alanine Aminotransferase (ALT/SGPT) 56 U/L (14-59) Alkaline Phosphatase 126 U/L (46-116) Total Protein 6.3 g/dL (6.4-8.2) Albumin 2.4 g/dL (3.4-5.0) Albumin/Globulin Ratio 0.6 (1.0-1.7) Medications Current Medications Hydromorphone HCl (Dilaudid) 0.5 mg 1X ONCE IVP Last administered on 09/25/20at 10:37; Start 09/25/20 at 10:15; Stop 09/25/20 at 10:16; Status DC Sodium Chloride 1,000 ml @ 1,000 mls/hr 1X ONCE IV Last administered on 09/25/20at 10:35; Start 09/25/20 at 10:15; Stop 09/25/20 at 11:14; Status DC Ketorolac Tromethamine (Toradol 15mg Vial) 15 mg 1X ONCE IVP Last administered on 09/25/20at 10:38; Start 09/25/20 at 10:15; Stop 09/25/20 at 10:16; Status DC Ceftriaxone Sodium (Rocephin) 1 gm 1X ONCE IVP Last administered on 09/25/20at 14:08; Start 09/25/20 at 13:15; Stop 09/25/20 at 13:16; Status DC Metronidazole 100 ml @ 100 mls/hr 1X ONCE IV Last administered on 09/25/20at 14:08; Start 09/25/20 at 13:15; Stop 09/25/20 at 14:14; Status DC Ondansetron HCl (Zofran) 4 mg PRN Q8HRS PRN IV NAUSEA/VOMITING Last administered on 09/26/20at 10:50; Start 09/25/20 at 13:45; Stop 09/26/20 at 13:44; Status DC Morphine Sulfate (Morphine Sulfate) 4 mg PRN Q2HR PRN IV PAIN Last administered on 09/26/20at 08:01; Start 09/25/20 at 13:45; Stop 09/26/20 at 13:44; Status DC Sodium Chloride 1,000 ml @ 100 mls/hr Q10H IV Last administered on 09/26/20at 00:44; Start 09/25/20 at 13:45; Stop 09/26/20 at 13:44; Status DC Piperacillin Sod/ Tazobactam Sod (Zosyn Per Pharmacy) 1 each PRN DAILY PRN MC SEE COMMENTS Last administered on 09/26/20at 12:03; Start 09/25/20 at 13:45 Piperacillin Sod/ Tazobactam Sod 3.375 gm/Sodium Chloride 50 ml @ 100 mls/hr Q6HRS IV Last administered on 09/28/20at 05:45; Start 09/25/20 at 18:00; Stop 09/28/20 at 11:50; Status DC Iohexol (Omnipaque 300 Mg/ml) 60 ml 1X ONCE IV Last administered on 09/26/20at 08:24; Start 09/26/20 at 08:00; Stop 09/26/20 at 08:01; Status DC Info (CONTRAST GIVEN -- Rx MONITORING) 1 each PRN DAILY PRN MC SEE COMMENTS; Start 09/26/20 at 08:00; Stop 09/28/20 at 07:59; Status DC Pantoprazole Sodium (PROTONIX VIAL for IV PUSH) 40 mg DAILYAC IVP ; Start 09/26/20 at 08:45; Stop 09/27/20 at 05:39; Status DC Fentanyl Citrate (Fentanyl 2ml Vial) 25 mcg PRN Q5MIN PRN IVP MILD PAIN 1-3 Last administered on 09/26/20at 13:44; Start 09/26/20 at 08:45; Stop 09/27/20 at 08:44; Status DC Fentanyl Citrate (Fentanyl 2ml Vial) 50 mcg PRN Q5MIN PRN IVP MODERATE PAIN 4- 6; Start 09/26/20 at 08:45; Stop 09/27/20 at 08:44; Status DC Morphine Sulfate (Morphine Sulfate) 1 mg PRN Q10MIN PRN IVP SEVERE PAIN 7-10 Last administered on 09/26/20at 14:28; Start 09/26/20 at 08:45; Stop 09/27/20 at 08:44; Status DC Ringer's Solution 1,000 ml @ 30 mls/hr Q24H IV Last administered on 09/26/20at 10:30; Start 09/26/20 at 08:45; Stop 09/26/20 at 20:44; Status DC Hydromorphone HCl (Dilaudid) 0.5 mg PRN Q10MIN PRN IVP SEVERE PAIN 7-10, 2nd CHOICE; Start 09/26/20 at 08:45; Stop 09/27/20 at 08:44; Status DC Prochlorperazine Edisylate (Compazine) 5 mg PACU PRN PRN IVP NAUSEA, MRX1; Start 09/26/20 at 08:45; Stop 09/27/20 at 08:44; Status DC Fentanyl Citrate (Fentanyl 2ml Vial) 100 mcg STK-MED ONCE .ROUTE ; Start 09/26/20 at 09:58; Stop 09/26/20 at 09:59; Status DC Propofol (Diprivan) 200 mg STK-MED ONCE IV ; Start 09/26/20 at 09:59; Stop 09/26/20 at 09:59; Status DC Lidocaine HCl (Lidocaine Pf 2% Vial) 5 ml STK-MED ONCE .ROUTE ; Start 09/26/20 at 09:59; Stop 09/26/20 at 09:59; Status DC Iohexol (Omnipaque 300 Mg/ml) 50 ml STK-MED ONCE .ROUTE Last administered on 09/26/20at 11:28; Start 09/26/20 at 10:21; Stop 09/26/20 at 10:21; Status DC Cellulose (Surgicel Hemostat 4x8) 1 each STK-MED ONCE .ROUTE Last administered on 09/26/20at 11:49; Start 09/26/20 at 10:21; Stop 09/26/20 at 10:22; Status DC Succinylcholine Chloride (Anectine) 200 mg STK-MED ONCE .ROUTE ; Start 09/26/20 at 10:21; Stop 09/26/20 at 10:22; Status DC Bupivacaine HCl (Sensorcaine Mpf 0.5%) 30 ml STK-MED ONCE .ROUTE Last administered on 09/26/20at 11:27; Start 09/26/20 at 10:21; Stop 09/26/20 at 10:22; Status DC Rocuronium Jackson (Zemuron) 50 mg STK-MED ONCE .ROUTE ; Start 09/26/20 at 10:22; Stop 09/26/20 at 10:22; Status DC Ondansetron HCl (Zofran) 4 mg STK-MED ONCE .ROUTE ; Start 09/26/20 at 10:25; Stop 09/26/20 at 10:25; Status DC Fentanyl Citrate (Fentanyl 2ml Vial) 100 mcg STK-MED ONCE .ROUTE ; Start 09/26/20 at 10:25; Stop 09/26/20 at 10:25; Status DC Famotidine (Pepcid Vial) 20 mg STK-MED ONCE .ROUTE ; Start 09/26/20 at 10:38; Stop 09/26/20 at 10:38; Status DC Famotidine (Pepcid Vial) 20 mg 1X ONCE IVP Last administered on 09/26/20at 10:53; Start 09/26/20 at 11:00; Stop 09/26/20 at 11:01; Status DC Ondansetron HCl (Zofran) 4 mg STK-MED ONCE .ROUTE ; Start 09/26/20 at 10:57; Stop 09/26/20 at 10:58; Status DC Dexamethasone Sodium Phosphate (Decadron) 4 mg STK-MED ONCE .ROUTE ; Start 09/26/20 at 10:57; Stop 09/26/20 at 10:58; Status DC Desflurane (Suprane) 30 ml STK-MED ONCE IH ; Start 09/26/20 at 10:57; Stop 09/26/20 at 10:58; Status DC Neostigmine Jackson (Neostigmine Methylsulfate) 5 mg STK-MED ONCE .ROUTE ; Start 09/26/20 at 11:20; Stop 09/26/20 at 11:20; Status DC Glycopyrrolate (Robinul) 1 mg STK-MED ONCE .ROUTE ; Start 09/26/20 at 11:20; Stop 09/26/20 at 11:20; Status DC Propofol (Diprivan) 200 mg STK-MED ONCE IV ; Start 09/26/20 at 11:56; Stop 09/26/20 at 11:56; Status DC Lidocaine HCl (Lidocaine Pf 2% Vial) 5 ml STK-MED ONCE .ROUTE ; Start 09/26/20 at 11:56; Stop 09/26/20 at 11:56; Status DC Fentanyl Citrate (Fentanyl 2ml Vial) 100 mcg STK-MED ONCE .ROUTE ; Start 09/26/20 at 11:56; Stop 09/26/20 at 11:57; Status DC Oxycodone/ Acetaminophen (Percocet 5/325) 1 tab PRN Q4HRS PRN PO MODERATE PAIN Last administered on 09/28/20at 10:34; Start 09/26/20 at 12:45 Oxycodone/ Acetaminophen (Percocet 5/325) 2 tab PRN Q4HRS PRN PO PAIN SEVERE; Start 09/26/20 at 12:45 Morphine Sulfate (Morphine Sulfate) 2 mg STK-MED ONCE .ROUTE ; Start 09/26/20 at 14:22; Stop 09/26/20 at 14:22; Status DC Morphine Sulfate (Morphine Sulfate) 4 mg PRN Q2HR PRN IV PAIN Last administered on 09/26/20at 16:52; Start 09/26/20 at 16:45 Cyclobenzaprine HCl (Flexeril) 10 mg 1X ONCE PO Last administered on 09/26/20at 18:27; Start 09/26/20 at 19:00; Stop 09/26/20 at 19:01; Status DC Acetaminophen (Tylenol) 650 mg PRN Q6HRS PRN PO MILD PAIN / TEMP > 100.3'F Last administered on 09/27/20at 00:08; Start 09/27/20 at 00:00 Pantoprazole Sodium (Protonix) 40 mg DAILYAC PO Last administered on 09/28/20at 05:45; Start 09/27/20 at 07:30; Stop 09/28/20 at 11:50; Status DC Lactobacillus Rhamnosus (Culturelle) 1 cap BID PO ; Start 09/28/20 at 10:00 Cyclobenzaprine HCl (Flexeril) 10 mg PRN Q6HRS PRN PO MUSCLE SPASMS Last administered on 09/28/20at 10:34; Start 09/28/20 at 10:30 Vitals/I & O Vital Sign - Last 24 Hours 09/27/20 09/27/20 09/27/20 09/27/20 15:00 17:27 18:27 19:30 Temp 98.1 98.2 98.1 98.2 Pulse 78 65 Resp 16 16 B/P (MAP) 117/72 (87) 90/59 (69) Pulse Ox 94 93 O2 Delivery Room Air Room Air Room Air Room Air 09/27/20 09/27/20 09/27/20 09/27/20 20:00 22:00 22:40 23:00 Temp 97.8 97.8 Pulse 53 Resp 18 B/P (MAP) 103/64 (77) Pulse Ox 93 O2 Delivery Room Air Room Air Room Air Room Air 09/28/20 09/28/20 09/28/20 09/28/20 03:08 07:00 10:34 11:00 Temp 98.2 98.2 98.3 98.2 98.2 98.3 Pulse 66 53 62 Resp 16 18 18 B/P (MAP) 100/52 (68) 110/69 (83) 113/72 (86) Pulse Ox 94 95 96 O2 Delivery Room Air Room Air Room Air Room Air l Intake and Output 09/27/20 09/27/20 09/28/20 15:00 23:00 07:00 Intake Total 300 ml 100 ml Output Total 240 ml 190 ml 110 ml Balance -240 ml 110 ml -10 ml Justifications for Admission Other Justification MONICA LACEY MD Sep 28, 2020 12:40
--- NOTE | 2020-09-28 13:44 | PDOC3 ---
Discharge Summary Visit Information Date of Admission: Sep 25, 2020 Date of Discharge: Sep 28, 2020 Final Diagnosis Problems Medical Problems: (1) Acute cholecystitis Status: Acute Brief Hospital Course Allergies Allergies Coded Allergies Type Severity Reaction Last Updated Verified No Known Drug Allergies 09/25/20 No Vital Signs Vital Signs Date Time Temp Pulse Resp B/P (MAP) Pulse Ox O2 Delivery O2 Flow Rate FiO2 09/28/20 11:34 Room Air 09/28/20 11:00 98.3 62 18 113/72 (86) 96 98.3 Lab Results Laboratory Tests Test 09/27/20 06:15 09/28/20 05:30 White Blood Count 13.5 x10^3/uL (4.0-11.0) 8.6 x10^3/uL (4.0-11.0) Red Blood Count 3.59 x10^6/uL (3.50-5.40) 3.38 x10^6/uL (3.50-5.40) Hemoglobin 10.5 g/dL (12.0-15.5) 10.0 g/dL (12.0-15.5) Hematocrit 32.1 % (36.0-47.0) 30.2 % (36.0-47.0) Mean Corpuscular Volume 89 fL (79-100) 89 fL (79-100) Mean Corpuscular Hemoglobin 29 pg (25-35) 30 pg (25-35) Mean Corpuscular Hemoglobin Concent 33 g/dL (31-37) 33 g/dL (31-37) Red Cell Distribution Width 14.4 % (11.5-14.5) 14.1 % (11.5-14.5) Platelet Count 245 x10^3/uL (140-400) 296 x10^3/uL (140-400) Sodium Level 137 mmol/L (136-145) 139 mmol/L (136-145) Potassium Level 3.7 mmol/L (3.5-5.1) 3.5 mmol/L (3.5-5.1) Chloride Level 102 mmol/L (98-107) 102 mmol/L (98-107) Carbon Dioxide Level 26 mmol/L (21-32) 29 mmol/L (21-32) Anion Gap 9 (6-14) 8 (6-14) Blood Urea Nitrogen 14 mg/dL (7-20) 15 mg/dL (7-20) Creatinine 1.2 mg/dL (0.6-1.0) 1.2 mg/dL (0.6-1.0) Estimated GFR (Cockcroft-Gault) 48.6 48.6 BUN/Creatinine Ratio 12 (6-20) 13 (6-20) Glucose Level 97 mg/dL (70-99) 95 mg/dL (70-99) Calcium Level 8.3 mg/dL (8.5-10.1) 7.9 mg/dL (8.5-10.1) Iron Level 17 ug/dL (50-170) Total Iron Binding Capacity 234 ug/dL (250-450) Iron Saturation 7 % (15-34) Total Bilirubin 1.3 mg/dL (0.2-1.0) 0.6 mg/dL (0.2-1.0) Aspartate Amino Transf (AST/SGOT) 38 U/L (15-37) 23 U/L (15-37) Alanine Aminotransferase (ALT/SGPT) 73 U/L (14-59) 56 U/L (14-59) Alkaline Phosphatase 129 U/L (46-116) 126 U/L (46-116) Total Protein 6.2 g/dL (6.4-8.2) 6.3 g/dL (6.4-8.2) Albumin 2.4 g/dL (3.4-5.0) 2.4 g/dL (3.4-5.0) Albumin/Globulin Ratio 0.6 (1.0-1.7) 0.6 (1.0-1.7) Vitamin B12 Level 693 pg/mL (247-911) Laboratory Tests Test 09/28/20 05:30 White Blood Count 8.6 x10^3/uL (4.0-11.0) Red Blood Count 3.38 x10^6/uL (3.50-5.40) Hemoglobin 10.0 g/dL (12.0-15.5) Hematocrit 30.2 % (36.0-47.0) Mean Corpuscular Volume 89 fL (79-100) Mean Corpuscular Hemoglobin 30 pg (25-35) Mean Corpuscular Hemoglobin Concent 33 g/dL (31-37) Red Cell Distribution Width 14.1 % (11.5-14.5) Platelet Count 296 x10^3/uL (140-400) Sodium Level 139 mmol/L (136-145) Potassium Level 3.5 mmol/L (3.5-5.1) Chloride Level 102 mmol/L (98-107) Carbon Dioxide Level 29 mmol/L (21-32) Anion Gap 8 (6-14) Blood Urea Nitrogen 15 mg/dL (7-20) Creatinine 1.2 mg/dL (0.6-1.0) Estimated GFR (Cockcroft-Gault) 48.6 BUN/Creatinine Ratio 13 (6-20) Glucose Level 95 mg/dL (70-99) Calcium Level 7.9 mg/dL (8.5-10.1) Total Bilirubin 0.6 mg/dL (0.2-1.0) Aspartate Amino Transf (AST/SGOT) 23 U/L (15-37) Alanine Aminotransferase (ALT/SGPT) 56 U/L (14-59) Alkaline Phosphatase 126 U/L (46-116) Total Protein 6.3 g/dL (6.4-8.2) Albumin 2.4 g/dL (3.4-5.0) Albumin/Globulin Ratio 0.6 (1.0-1.7) Brief Hospital Course Ms. Steele is a 44 old female who presented with acute cholecystitis. Co nsultation was placed to general surgery. She underwent laparoscopic cholecystectomy. Diet was advanced as tolerated. KULWANT drain was placed and removal when noted improvement in serosanguineous drainage. Stable for discharge home with close PCP follow-up. Discharge Information Condition at Discharge: Improved Follow Up: Weeks Disposition/Orders: D/C to Home Justicifation of Admission Dx: Justifications for Admission: Justification of Admission Dx: Yes GEOVANNI JOHNSON MD Sep 28, 2020 13:44
[2020-09-28] MEDS ORDERED: PANT40TA77 PO (13:46)
--- NOTE | 2020-09-28 14:51 | NUR ---
Patient discharged home with self care. Patient verbalized understanding of discharge instructions. No questions at this time.
--- NOTE | 2020-09-28 15:09 | PATHOLOGY ---
[facility] Accession Number: [id number] . 01 Material submitted: . gallbladder - GALLBLADDER . 01 Clinical history: . LAP DAVID W/GRAMS . 02 Diagnosis: Gallbladder, cholecystectomy: - Acute necrotizing and chronic cholecystitis with focally increased eosinophils. (JPM:chris; 09/28/2020) S 09/28/2020 1010 Local . 02 Comment: There are no calculi identified within the gallbladder lumen or specimen container. There is no evidence of malignancy. (JPM:chris; 09/28/2020) . 02 Electronically signed: . Moreno Vega MD, Pathologist NPI- [id number] . 01 Gross description: . The specimen is received in formalin, labeled "Yvonne Steele, gallbladder". Received is a previously punctured gallbladder measuring 9.1 x 4.5 x 2.1 cm in greatest dimensions, having a dusky saldivar-brown appearance with a large amount of exudate serosal surface. Opening the specimen reveals a velvety to shaggy, light brown to dusky saldivar-green mucosa with a gallbladder wall thickness of 0.1 cm. The lumen of the gallbladder is filled with blood-tinged mucoid material as well as adherent exudate on the mucosa. Calculi are not present, and no masses or lesions are noted grossly. Morgue Keeper sections, to include the proximal margin, are submitted in cassette A1. (CAA; 09/27/2020) QAC/QAC 09/28/2020 1009 Local . 02 Pathologist provided ICD-10: K81.2 . 02 CPT . 227646 Specimen Comment: Report sent to / Specimen Comment: A duplicate report has been generated due to demographic updates. Performed at: 01 [facility] [address] [facility] [address], [place] [id number] MD Inocente Graham MD Phone: [phone] Performed at: 02 [facility] [address] [place] [id number] MD Moreno Vega MD Phone: [phone]
== END 2020-09-28 14:50 | disposition home or self-care (01) | DRG 419 ==
LOC: ER 08:54 → ED HOLD 13:15 → 4 NORTH 18:02
PROVIDERS: ADMIT Internal Medicine; ATTEND Internal Medicine
PROC: BF131ZZ Fluoroscopy of Gallbladder and Bile Ducts using Low Osmolar Contrast (ICD-10-PCS; 2020-09-26)
PROC: 0FT44ZZ Resection of Gallbladder, Percutaneous Endoscopic Approach (ICD-10-PCS; principal; 2020-09-26 11:00)
DX: K80.00 Calculus of gallbladder with acute cholecystitis without obstruction (principal); K82.A1 Gangrene of gallbladder in cholecystitis; M19.90 Unspecified osteoarthritis, unspecified site; Z20.822 Contact with and (suspected) exposure to COVID-19; D64.9 Anemia, unspecified; R00.0 Tachycardia, unspecified; K82.8 Other specified diseases of gallbladder; K76.0 Fatty (change of) liver, not elsewhere classified; D72.829 Elevated white blood cell count, unspecified; R79.89 Other specified abnormal findings of blood chemistry; K21.9 Gastro-esophageal reflux disease without esophagitis; F17.200 Nicotine dependence, unspecified, uncomplicated; Z82.49 Family history of ischemic heart disease and other diseases of the circulatory system
CPT/HCPCS: 36415; 71045; 74177; 74300; 76705; 80048; 80053; 80076; 80307; 81001; 81025; 82550; 82607; 83540; 83550; 83605; 83690; 83735; 83880; 84484; 85007; 85025; 85027; 87426; 88304; 93005; 96361; 96365; 96375; A4314; A4364; A4452; A6219; J0330; J0696; J1100; J1170; J1885; J2270; J2405; J2543; J2704; J2710; J3010; J3490; J7030; J7120; Q9967; U0003; 99285-25; G0378